=== PATIENT | male | born 1945 | race Caucasian/White ===

== ENCOUNTER 2024-09-27 16:41 | Inpatient (IN) | payer MEDICARE, OTHER, SELFPAY ==
[2024-09-27 15:05] VITALS: BP 156/71
[2024-09-27 15:14] VITALS: BMI 21.5
[2024-09-27 15:23] LABS: % Basophils 1.4 % (0-2); % Eosinophils 4.3 % (0-6); % Immature Granulocytes 0.8 % (0-0.5); % Lymphocytes 16.2 % (20.5-51.1); % Monocytes 9.3 % (1.7-9.3); Absolute Basophils 0.1 10^3/uL (0-0.2); Absolute Eosinophils 0.2 10^3/uL (0-0.7); Absolute Lymphocytes 0.8 10^3/uL (1.2-3.4); Absolute Monocytes 0.5 10^3/uL (0.1-0.6); Absolute Neutrophils 3.4 10^3/uL (1.4-6.5); Hematocrit 35.8 % (39.0-52.0); Hemoglobin 12.4 g/dL (13.0-18.0); Mean Corp Hgb Conc. 34.6 g/dL (33.0-37.0); Mean Corpuscular Hgb 32.4 pg (27.0-31.0); Mean Corpuscular Volume 93.5 fL (80.0-94.0); Mean Platelet Volume 8.5 fL (7.4-10.4); Nucleated Red Blood Cells % 0 % (-); Platelet Count 237 10^3/uL (130-400); Red Blood Cell Count 3.83 10^6/uL (4.70-6.10); Red Cell Dist. Width 14.1 % (11.5-14.5); White Blood Cell Count 4.9 10^3/uL (4.8-10.8)
[2024-09-27 15:31] LABS: INR 1.06; PT 14.3 Sec (11.4-14.6)
[2024-09-27 15:32] LABS: ALT (SGPT) < 10 U/L (0-50); APTT 28.6 Sec (23.4-35.0); AST (SGOT) 19 U/L (17-59); Albumin 3.9 g/dl (3.5-5.0); Alkaline Phosphatase 71 U/L (38-126); Blood Urea Nitrogen 24 mg/dl (9-20); Calcium 8.9 mg/dl (8.4-10.2); Carbon Dioxide 27 mmol/L (22-30); Chloride 109 mmol/L (98-107); Estimated Creatinine Clearance 77 ml/min; Glucose 98 mg/dl (70-99); Potassium 3.9 mmol/L (3.5-5.1); Sodium 140 mmol/L (135-145); Total Bilirubin 0.8 mg/dl (0.2-1.3); Total Protein 6.7 g/dl (6.3-8.2); eGFR > 60.00
[2024-09-27] MEDS: DILAUDID 0.5 MG IV ×3 (15:33→23:39)
[2024-09-27 16:11] VITALS: BP 152/74
--- NOTE | 2024-09-27 16:18 | ED.GENMED ---
History of Present Illness
General
Chief Complaint: Musculo-Skeletal Complaint
Time Seen by Provider: 09/27/24 15:09
History of Present Illness
History of Present Illness:
78-year-old male presents to the emergency department for evaluation of a left hip injury. He tripped and fell outside the grocery store and landed on the left hip. Prior history of Parkinson's. Denies head strike. He is not on blood thinners.
Review of Systems
Review of Systems
Allergies reviewed?: Yes
All Other Systems: ROS reviewed and negative except as documented in HPI and ROS
Phy Exam
Physical Exam
Physical Exam:
GEN: Well appearing, NAD, WDWN
Eyes: PERRLA, EOMs intact, no scleral icterus
HENT: NCAT, oral mucosa moist
Lungs: CTAB, no wheezes, rales, rhonchi, normal chest wall excursion
Cardiac: RRR
Abdomen: S, NT, ND, NABS, no masses or hepatosplenomegaly
Neuro: AO x 3, no focal deficits to BUE/BLE, normal sensation throughout
MSK: Shortening and external rotation of the left lower extremity with tenderness to the left hip
Skin: No rashes, petechiae. Normal color, no pallor or jaundice.
Psych: Calm, cooperative, proper hygiene
Course
Orders/Labs/Results
Orders:
Orders
09/27/24 Dinner
Regular
09/27/24 15:13
Type+Screen Urgent
Complete Blood Count/With Diff Urgent
Comprehensive Metabolic Panel Urgent
PTT Urgent
Prothrombin Time Urgent
09/27/24 15:18
CR Hip - LT w/wo Pel 2-3 Vw* Urgent
Comment:
Reason For Exam: fall, L hip injury
Include a pelvis x-ray?: Yes
09/27/24 15:31
HYDROmorphone [Dilaudid] 0.5 mg .ROUTE .STK-MED ONE
HYDROmorphone [Dilaudid] 0.5 mg IV NOW STA
09/27/24 16:24
ABO2 Urgent
BBK Wristband Number:
Associate notified that ABO2 has been ordered: [id number]
Date: 09/27/24
Time: 15:25
Horse Rider ID: [id number]
09/27/24 16:27
Carbidopa/Levodopa [Sinemet 25-100] 2 tablet PO NOW STA
09/27/24 16:28
Entacapone [Comtan] 200 mg PO NOW STA
09/27/24 16:36
Admit/Transfer Patient As Directed
Co-Sign Provider:
Level of Care: Inpatient admission
Assign to:: Medical/Surgical
Physician / Group: raeann
Diagnosis: hip fracture
Reason for Hospitalization: hip fracture
Expected length of stay greater than two midnights?: Yes
ELOS- Estimated Length of Stay in days: 2
I certify the patient meets the requirements for IP care: Yes
Code Status As Directed
Resuscitation Status: Full Code
PRN Pain Medication Management As Directed
May give lesser potent ordered pain med per pt: Yes
preference::
Protocol:: Medication orders for pain may be administered in a
manner that supports deferring to patient preference
when the pt is:
- Requesting an ordered lesser potent pain medication.
Least to most potent pain medications are defined
as: acetaminophen < NSAID < tramadol < opioids
(morphine, oxycodone, hydromorphone).
- Requesting a lesser dose of the same medication IF
ORDERED.
- Requesting a less intrusive route of administration
if both routes are prescribed by the provider (PO <
IV).
09/27/24 16:59
Acetaminophen [Tylenol] 650 mg PO Q4HPRN PRN
HYDROmorphone [Dilaudid] 0.5 mg IV Q4HPRN PRN
09/27/24 18:39
Ezetimibe [Zetia] 10 mg PO QPM
Ipratropium/Albuterol Sulfate [Duoneb] 3 ml INH R Q6HPRN PRN
Tamsulosin [Flomax] 0.4 mg PO QPM
09/27/24 18:39
ORTHOPEDIC CONSULT Routine
Consulting Provider: David Reynoso
Was physician already notified: Yes
Activity As Directed
Activity Level: As Tolerated
Pneumatic Compression Sleeves As Directed
Type: Knee high
Vital Signs As Directed
Frequency: Per unit guidelines
DX Deep Vein Thrombosis Video Routine
09/28/24 Breakfast
NPO
Allow oral meds: Yes
Allow clear liquids: Sips of Clears
Complete Blood Count/With Diff IN AM
Comprehensive Metabolic Panel IN AM
Levothyroxine [Synthroid] 150 mcg PO [id number]@0600
09/28/24 08:00
Aspirin Low Dose EC [Aspir Low (Enteric Coated)] 81 mg PO DAILY
Finasteride [Proscar] 5 mg PO DAILY
Furosemide [Lasix] 20 mg PO DAILY
Polyethylene Glycol Powder [Miralax] 17 grams PO Q48H
Abnormal Lab Results
09/27/24
15:13
RBC 3.83 L 10^6/uL
(4.70-6.10)
Hgb 12.4 L g/dL
(13.0-18.0)
Hct 35.8 L %
(39.0-52.0)
MCH 32.4 H pg
(27.0-31.0)
Absolute Lymphs (auto) 0.8 L 10^3/uL
(1.2-3.4)
Immature Gran % 0.8 H %
(0-0.5)
Lymphocytes % 16.2 L %
(20.5-51.1)
Chloride 109 H mmol/L
(98-107)
BUN 24 H mg/dl
(9-20)
09/27/24 15:13
09/27/24 15:13
Vital Signs
Initial and Last Documented VS:
Initial Vital Signs
Temp Pulse Resp BP Pulse Ox
97.6 F 57 24 156/71 98
09/27/24 15:05 09/27/24 15:05 09/27/24 15:05 09/27/24 15:05 09/27/24 15:05
Last Documented Vital Signs
Temp Pulse Resp BP Pulse Ox
97.3 F 68 18 151/76 90
09/27/24 18:45 09/27/24 20:13 09/27/24 20:13 09/27/24 18:45 09/27/24 20:13
MDM/Problems Addressed
MDM/Problems Addressed:
Imaging reveals a left neck fracture, orthopedics made aware, will admit to the medical service for further management pernding ortho consultation
*Critical Care Note
Total Time (30-74mins, 75-104mins- exclusive of procedures): Not Applicable
ED Attending Note
-
Portions of this chart may have been created with voice recognition software.� Occasional wrong word or��sound alike� substitutions may have occurred due to the inherent limitations of voice recognition software.
Discharge Plan
Departure
Patient Disposition: Admit
Date of Disposition: 09/27/24
Time of Disposition: 16:20
Admit to: Med/Surg
Presentation/result/management discussed w/ accepting MD/DO: Hospitalist
Discharge Problem:
Closed fracture of neck of left femur
Interventions
Interventions:
*Risk Screen - Suicide Last Done: 09/27/24 15:23
*General Assessment Last Done: 09/27/24 15:21
*Neglect/Abuse Screening Last Done: 09/27/24 15:23
*ED- Fall Risk Assessment Last Done: 09/27/24 15:21
*ED COVID-19 Vaccine History Last Done: 09/27/24 15:21
*Nursing Disposition Last Done: 09/27/24 18:30
ED-Musculoskeletal Assessment Last Done: 09/27/24 15:24
Discharge Date and Time
Discharge Date/Time: 09/27/24 18:30
--- NOTE | 2024-09-27 16:38 | HPS.HSE ---
Family Physician
-
Family Physician: Virgil Jiménez
Chief Complaint
-
fall and hip fracture
History of Present Illness
78-year-old male past medical history of CAD status post stents, possible CHF, Parkinson's disease, BPH, hypothyroidism, constipation, hypercholesterolemia, COPD, presenting for left hip injury. He tripped and fell outside the grocery store and
landed on his left hip. Denies head injury. Not on blood thinners.
He normally ambulates with a walker. He has falls occasionally.
No recent chest pain or shortness of breath. Denies any difficulties with anesthesia previously.
He is a former smoker. Denies alcohol use.
Medical History
Past Medical History
Past Medical History: Reports Other ( CAD status post stents, possible CHF, Parkinson's disease, BPH, hypothyroidism, constipation, hypercholesterolemia, COPD)
Past Surgical History: Reports None
Social History
Tobacco: Former Smoker
Alcohol: None
Drug: None
Family History
Family History: Not pertinent
Allergies / Home Medications
Allergies reflects when Allergies were last updated in [employer].
Home Medications with original date entered in [employer]
Allergy/Medication List:
Allergies
Allergy/AdvReac Type Severity Reaction Status Date / Time
No Known Allergies Allergy Verified 09/27/24 15:15
Home Medications
aspirin 81 mg tablet,delayed release 81 mg PO DAILY 09/27/24
carbidopa 50 mg-levodopa 200 mg-entacapone 200 mg tablet 1 tab PO Q4H 09/27/24
ezetimibe 10 mg tablet (Zetia) 10 mg PO QPM 09/27/24
finasteride 5 mg tablet 5 mg PO DAILY 09/27/24
fluticasone fur. 100 mcg-umeclid 62.5 mcg-vilant 25 mcg inhalat.powder (Trelegy Ellipta) 1 inh inhalation R DAILY 09/27/24
furosemide 20 mg tablet (Lasix) 20 mg PO DAILY 09/27/24
ipratropium 0.5 mg-albuterol 3 mg (2.5 mg base)/3 mL nebulization soln 3 ml inhalation R Q6HPRN PRN sob 09/27/24
levothyroxine 150 mcg tablet (Synthroid) 150 mcg PO [id number] 09/27/24
polyethylene glycol 3350 17 gram oral powder packet (Miralax) 17 g PO Q48H 09/27/24
tamsulosin 0.4 mg capsule (Flomax) 0.4 mg PO QPM 09/27/24
Review of Systems
-
History Source: Patient
A 12 point ROS was completed and negative except as noted: Yes
Constitutional: Reports No Symptoms
EENT: Reports No Symptoms
Respiratory: Reports No Symptoms
Cardiac: Reports No Symptoms
Abdomen/GI: Reports No Symptoms
: Reports No Symptoms
Musculoskeletal: Reports See HPI
Skin: Reports No Symptoms
Neurological: Reports No Symptoms
Endocrine: Reports No Symptoms
Hematologic/Lymphatic: Reports No Symptoms
Psych: Reports No Symptoms
Physical Exam
Vital Signs
Vital Signs
Temp Pulse Resp BP Pulse Ox
97.6 F 70 26 152/74 98
09/27/24 15:05 09/27/24 16:11 09/27/24 16:11 09/27/24 16:11 09/27/24 15:30
Physical Exam
General: Well Developed, Well Nourished and No Apparent Distress
HEENT: NormoCephalic, Moist mucous membranes and Atraumatic
Respiratory: Clear
Cardiac: S1/S2 and Regular Rhythm; No Murmur or Rub
GI: Soft, Non Tender, Non Distended and Normal Bowel Sounds; No Organomegaly
Rectal: Deferred by Provider
Musculoskeletal: No Clubbing, No Cyanosis and No Edema
Skin: No Rash
Neuro: Nonfocal/grossly intact
Laboratory Results
-
04/09/25 15:13
09/27/24 15:13
Laboratory Results
PT 14.3 Sec (11.4-14.6) 09/27/24 15:13
INR 1.06 09/27/24 15:13
APTT 28.6 Sec (23.4-35.0) 09/27/24 15:13
Total Bilirubin 0.8 mg/dl (0.2-1.3) 09/27/24 15:13
AST 19 U/L (17-59) 09/27/24 15:13
ALT < 10 U/L (0-50) 09/27/24 15:13
Alkaline Phosphatase 71 U/L (38-126) 09/27/24 15:13
Data Reviewed
-
Lab Data: Labs Reviewed by me
Old Records: Reviewed
Impression/Plan
-
IMPRESSION:
PLAN:
# Ambulatory dysfunction with fall and likely fracture of the neck of the proximal left femur
- Tylenol, Dilaudid as needed for pain
- N.p.o. past midnight
- Orthopedics consulted
- N.p.o. postmidnight for potential surgery tomorrow
- Patient appears well compensated and can proceed to surgery
Parkinson's disease
- Continue carbidopa/levodopa/entacapone
CAD status post stents
- Continue aspirin
Possible chronic HFpEF
- Continue Lasix
BPH
- Continue finasteride, tamsulosin
Hypothyroidism
Constipation
- Continue bowel regimen
Hypercholesterolemia
- Continue Zetia
COPD
- Continue inhalers
Chronic stomach problem
- Patient did not tolerate PPI
Former smoker
Full code
DVT prophylaxis�SCDs
N.p.o. postmidnight
[2024-09-27] MEDS: COMTAN 200 MG PO ×3 (16:56→23:39)
[2024-09-27] MEDS: SINEMET 25-100 2 TABLET PO ×3 (16:56→23:37)
[2024-09-27 17:00] VITALS: BP 153/79
[2024-09-27 18:00] VITALS: BP 111/67
[2024-09-27 18:45] VITALS: BP 151/76
[2024-09-27] MEDS: FLOMAX 0.4 MG PO (19:36)
[2024-09-27] MEDS: ZETIA 10 MG PO (19:36)
[2024-09-27] MEDS: DUONEB 3 ML INH (20:07)
[2024-09-27] MEDS: SYMBICORT 80/4.5 MCG INHALER 2 PUFF INH (20:24)
[2024-09-27 23:00] VITALS: BP 103/59
[2024-09-28] VITALS (7 sets, daily range): BP systolic 123–148; BP diastolic 61–76; BMI 21.5
[2024-09-28] MEDS: SINEMET 25-100 2 TABLET PO ×4 (04:59→20:35)
[2024-09-28] MEDS: COMTAN 200 MG PO ×4 (04:59→21:06)
[2024-09-28] MEDS: SYNTHROID 150 MCG PO (05:00)
[2024-09-28] MEDS: DILAUDID 0.5 MG IV ×2 (05:27→12:27)
--- NOTE | 2024-09-28 05:48 | PTCARENOTE ---
Pt slept intermittently t/o the night. Pt with left hip pain, PRN medication administered as ordered. Pain especially with movement. #25CC in place draining yoel urine. Pt repositioned as tolerated. Knee high seq in place. Pt HOLLAND with exertional ex
wheezes with movement and lowering of head. Pt cooperative with care. No other changes in assessment noted. Will continue to monitor.
[2024-09-28 06:40] LABS: % Basophils 0.6 % (0-2); % Eosinophils 2.9 % (0-6); % Immature Granulocytes 0.5 % (0-0.5); % Lymphocytes 8.8 % (20.5-51.1); % Monocytes 10.7 % (1.7-9.3); % Neutrophils 76.5 % (42.2-75.2); Absolute Eosinophils 0.2 10^3/uL (0-0.7); Absolute Lymphocytes 0.6 10^3/uL (1.2-3.4); Absolute Monocytes 0.7 10^3/uL (0.1-0.6); Absolute Neutrophils 4.8 10^3/uL (1.4-6.5); Hematocrit 33.9 % (39.0-52.0); Hemoglobin 11.6 g/dL (13.0-18.0); Mean Corp Hgb Conc. 34.2 g/dL (33.0-37.0); Mean Corpuscular Hgb 32.2 pg (27.0-31.0); Mean Corpuscular Volume 94.2 fL (80.0-94.0); Mean Platelet Volume 8.5 fL (7.4-10.4); Nucleated Red Blood Cells % 0 % (-); Platelet Count 211 10^3/uL (130-400); White Blood Cell Count 6.3 10^3/uL (4.8-10.8)
--- NOTE | 2024-09-28 07:10 | W.PN.UPDATE ---
Update Note
Progress Note Update
Full orthopedic consult dictated: Son Lamont and [id number] present at bedside
Dx: Left hip displaced femoral neck fracture
Plan: Left hip hemiarthroplasty later today Surgical consent signed. NPO and ABX railroad commissioner to OR.
[2024-09-28] MEDS: SYMBICORT 80/4.5 MCG INHALER 2 PUFF INH ×2 (07:23→19:41)
[2024-09-28] MEDS: SPIRIVA RESPIMAT 2.5 MCG 2 PUFF INH (07:23)
[2024-09-28 07:26] LABS: ALT (SGPT) < 10 U/L (0-50); AST (SGOT) 17 U/L (17-59); Albumin 3.6 g/dl (3.5-5.0); Alkaline Phosphatase 84 U/L (38-126); Blood Urea Nitrogen 21 mg/dl (9-20); Calcium 8.8 mg/dl (8.4-10.2); Carbon Dioxide 28 mmol/L (22-30); Chloride 110 mmol/L (98-107); Estimated Creatinine Clearance 90 ml/min; Glucose 92 mg/dl (70-99); Potassium 4.1 mmol/L (3.5-5.1); Sodium 140 mmol/L (135-145); Total Bilirubin 1.1 mg/dl (0.2-1.3); Total Protein 6.2 g/dl (6.3-8.2); eGFR > 60.00
[2024-09-28] MEDS: ASPIR LOW (ENTERIC COATED) 81 MG PO (07:50)
[2024-09-28] MEDS: LASIX 20 MG PO (07:51)
[2024-09-28] MEDS: PROSCAR 5 MG PO (07:52)
[2024-09-28] MEDS: MIRALAX PO (07:58)
--- NOTE | 2024-09-28 08:06 | W.PN.HOSP.TC ---
Today's Communication/Plan
-
Surgery for hip fracture today
Maintain NPO
DVT prophylaxis per ortho following surgery
Assessment / Plan
Assessment / Plan
Physical Exam
General: Well Developed, Well Nourished and No Apparent Distress
HEENT: Normocephalic, Moist mucous membranes and Atraumatic
Respiratory: Clear to Auscultation Bilaterally
Cardiac: S1/S2 and Regular Rhythm
GI: Soft, Non Tender, Non Distended and Normal Bowel Sounds
Musculoskeletal: No Cyanosis and No Edema
Skin: Warm. Dry.
Neuro: Nonfocal/grossly intact
Assessment/Plan
78-year-old male with past medical history of CAD status post stents, possible CHF, Parkinson's disease, BPH, hypothyroidism, constipation, hypercholesterolemia and COPD, presented for left hip injury. He tripped and fell outside the grocery store
and landed on his left hip and left upper extremity. Denied head injury or loss of consciousness or any prodromal symptoms prior to fall. Not on blood thinners. He normally ambulates with a walker. He has falls occasionally. No recent chest pain or
shortness of breath. Denies any difficulties with anesthesia previously.
# Ambulatory dysfunction with fall and left hip displaced femoral neck fracture
- Tylenol, Dilaudid as needed for pain
- N.p.o. for surgery today
- Orthopedics consulted
- Patient appears well compensated and can proceed to surgery, risk is elevated with history of CAD, age, comorbid conditions, but surgery is necessary
Parkinson's disease
- Continue carbidopa/levodopa/entacapone
CAD status post stents
- Continue aspirin
Possible chronic HFpEF
- Continue Lasix
BPH
- Continue finasteride, tamsulosin
Hypothyroidism
Constipation
- Continue bowel regimen
Hypercholesterolemia
- Continue Zetia
COPD
- Continue inhalers
Chronic stomach problem
- Patient did not tolerate PPI
Former smoker
Full code
DVT prophylaxis�SCDs
N.p.o. for surgery today
I spoke to patient's son in person in patient's room today, and answered all his questions and concerns to satisfaction.
Anticipated Discharge: 24 - 48 hours
Subjective/Interval History
-
Date of Service: September 28, 2024
Patient was seen and examined. He was bit more confused this morning, but this has improved per patient's son. Patient denied any pain as long as he doesn't move significantly.
Objective Data
-
Labs:
Laboratory Results
09/28/24
06:23
WBC 6.3
Hgb 11.6 L
Hct 33.9 L
Plt Count 211
Sodium 140
Potassium 4.1
Chloride 110 H
Carbon Dioxide 28
BUN 21 H
Creatinine 0.6 L
Glucose 92
Calcium 8.8
Total Bilirubin 1.1
AST 17
ALT < 10
Alkaline Phosphatase 84
Vital Signs:
Vital Signs
Temp Pulse Resp BP Pulse Ox
98.3 F 78 18 127/61 97
09/28/24 07:26 09/28/24 07:51 09/28/24 07:29 09/28/24 07:51 09/28/24 07:29
I&O
09/27/24 09/28/24 09/29/24
06:59 06:59 06:59
Output Total 300 / 300
Balance -300 / -300
--- NOTE | 2024-09-28 15:30 | PTCARENOTE ---
Pt transported to surgery, son took belongings, pt to transfer to [address] [place] [address] from PACU
--- NOTE | 2024-09-28 17:50 | OR.RPT ---
Operative Report
Operative Report
Orthopaedic Surgery Operative Note
DATE OF OPERATION: 09/28/2024
PREOPERATIVE DIAGNOSES: Displaced femoral neck fracture, left
POSTOPERATIVE DIAGNOSES: Same
OPERATION PERFORMED: Left hip hemiarthroplasty
SURGEON: David Reynoso MD
VEGETABLE FARM MANAGER: Estiven WAGNER who helped with patient and limb positioning and retraction
ANESTHESIA: Spinal
COMPLICATIONS: None.
ESTIMATED BLOOD LOSS: 50 mL.
DRAINS: None
SPECIMEN: None
FINDINGS: Displaced fracture of the femoral neck
IMPLANTS: [employer] stem size 14, standard offset, Size 51 Endo unipolar head, DJO bone cement, medium cement restrictor, distal centralizer
INDICATIONS: The patient presented to the emergency department after a fall sustained one day ago with new onset hip pain. Xrays showed a displaced femoral neck fracture. I discussed treatment options with the patient and discussed that based on the
degree of displacement that fixation of the fracture may have a high risk of complication and failure. I discussed surgical treatment with arthroplasty. Based on the patient's age and activity level, shared decision was to proceed with
hemiarthroplasty. I reviewed the risks, benefits, and alternatives of various treatment options. The patient understood the risks which included, but were not limited to, bleeding, infection, failure to relieve pain, more pain than preop, damage to
blood vessels and nerves, need for reoperation, mechanical failure of the implants, wound healing problems, stiffness, instability, blood clot, pulmonary embolism, myocardial infarction, pneumonia, arrhythmia, CVA, and . The patient accepted
these risks and wished to proceed. All questions were answered, and informed consent was obtained.
PROCEDURE IN DETAIL:
The patient was identified in the preoperative holding area. The left hip was identified as the operative site. The patient was taken in the operating room and transferred to the operative table. Spinal anesthesia was performed. IV antibiotics and
tranexamic acid were administered. The patient was placed in the lateral position with Stulberg hip positioners. Axillary roll was placed. The down leg was well padded. All bony prominences were well padded. The operative limb was prepped and draped
in the usual sterile fashion.
Time out was performed. A posterolateral approach to the hip was used. The skin incision was centered over the greater trochanter. This was taken down sharply through subcutaneous tissues. Meticulous hemostasis was achieved throughout the case with
electrocautery. We split the fascia olga lidia in line with skin incision. I split the gluteus jonathan bluntly. We cauterized all crossing vessels as we split it. I palpated the sciatic nerve and made sure it was well posterior in the operative field. It
was protected throughout the case.
The posterior anatomy was distorted due to fracture hematoma and swelling. I performed a partial bursectomy to identify the short external rotators. The gluteus medius and minimus were identified and retracted anteriorly. I incised the piriformis
tendon and conjoint tendon at their insertions. These were tagged for later repair. I then performed a trapezoidal capsulotomy. The edges were tagged for later repair.
The femoral neck fracture was identified. The leg was flexed and internally rotated, and a fresh femoral neck cut was performed. The femur was translated anteriorly. Care was taken to preserve the labrum. The femoral head was carefully removed with
a rosales and a tenaculum. The head measured to be 51mm. The acetabulum was inspected and noted not to have marked degenerative changes. A trial head was placed in the acetabulum and size 51 had appropriate fit and suction fit.
Attention was turned to the femur. Box osteotome and Charnley awe were used to open the canal. The femur was sequentially broached to size 14 which had appropriate fit and fill. A trial head was placed with standard offset neck and the hip was
reduced. Leg length and offset were checked and found to be appropriate. The hip was taken through complete range of motion and found to be stable in extension, the position of sleep, and at 90 degrees of flexion and internal rotation.
Trials were removed and the femoral canal was prepared with irrigation and ribbon gauze packing sequentially. A cement restrictor was placed into the femoral canal 1cm distal to the tip of the femoral stem. This was measured off the trial femoral
stem. Once the femoral canal was prepared, the cement was mixed. Once doughy in consistency, the cement was pressurized into the canal with a cement gun. The stem was then carefully inserted into the canal with care to minimize rotation or
micromotion. Excess cement was removed. Once the cement was polymerized, the joint was irrigated copiously. The acetabulum was inspected to be free of cement particles and other debris. The final head was impacted onto clean and dry trunion and the
hip was reduced. Leg length and stability were checked again and found to be acceptable. The sciatic nerve was inspected and noted to be free of tension and uninjured.
A dilute betadine soak was performed for approximately 3 minutes, and then the hip was copiously irrigated. I repaired the capsule, piriformis, and conjoint tendon with #2 Ethibond to drill holes in the greater trochanter. Local anesthetic was
injected. The fascia olga lidia was closed with #1 PDS in running fashion. The subcutaneous tissues were closed with 2-0 PDS in running fashion. The skin was reapproximated with 3-0 Monocryl subcuticular suture. I placed a Prineo dressing followed by a
Mepilex Ag dressing. The patient awoke from anesthesia without difficulty. Sponge and instrument counts were correct x2 at the end of the case.
I was present and participated in the entire procedure. The patient was sent to the recovery room in stable condition.
Marcel Reynoso MD
--- NOTE | 2024-09-28 18:40 | PTCARENOTE ---
Pt received from the PACU via bed. Transport was w/o incident. Pt is Awake and alert w/ some confusion. Pt and Pt's son's instructed on plan of care. Pt verbalized understanding of instructions, but will need on going instruction and orientation.
Pt's VSS, Pt denies pain or nausea at this time. Pt's left hip with Mepilex dressing C/D/I, no drainage noted at present. Call callahan is within reach. Will apply bed alarm for safety.
[2024-09-28] MEDS: SINEMET 25-100 PO (18:45)
[2024-09-28] MEDS: COMTAN PO (18:45)
[2024-09-28] MEDS: DUONEB 3 ML INH (19:52)
[2024-09-28] MEDS: ASPIRIN 325 MG PO (20:35)
[2024-09-28] MEDS: FLOMAX 0.4 MG PO (20:35)
[2024-09-28] MEDS: COLACE 100 MG PO (20:35)
[2024-09-28] MEDS: ZETIA 10 MG PO (20:40)
[2024-09-29] VITALS (8 sets, daily range): BP systolic 93–124; BP diastolic 46–71; PULSE 50; O2SAT 95
[2024-09-29] MEDS: ANCEF 5 IV ×2 (00:26→08:13)
[2024-09-29] MEDS: COMTAN PO ×2 (00:27→00:37)
[2024-09-29] MEDS: SINEMET 25-100 PO ×2 (00:27→00:37)
--- NOTE | 2024-09-29 00:37 | PTCARENOTE ---
Pt refused to take Parkinsons meds, spat them out of his mouth into his hand. RN explained what the meds were but patient continually agitated and confused, stated, 'I didn't do it, I already apologized. Pt was reoriented to time, place, situation
numerous times. Pt continued to refuse medications. Care ongoing.
[2024-09-29] MEDS: SINEMET 25-100 2 TABLET PO ×5 (03:28→20:08)
[2024-09-29] MEDS: COMTAN 200 MG PO ×5 (03:28→20:09)
[2024-09-29] MEDS: SYNTHROID 150 MCG PO (05:02)
[2024-09-29 07:39] LABS: Hematocrit 33.3 % (39.0-52.0); Hemoglobin 11.4 g/dL (13.0-18.0); Mean Corp Hgb Conc. 34.2 g/dL (33.0-37.0); Mean Corpuscular Hgb 32.5 pg (27.0-31.0); Mean Corpuscular Volume 94.9 fL (80.0-94.0); Platelet Count 207 10^3/uL (130-400); Red Blood Cell Count 3.51 10^6/uL (4.70-6.10); Red Cell Dist. Width 14.1 % (11.5-14.5); White Blood Cell Count 8.6 10^3/uL (4.8-10.8)
--- NOTE | 2024-09-29 07:49 | W.PN.HOSP.TC ---
Today's Communication/Plan
-
Discharge today
Assessment / Plan
Assessment / Plan
Physical Exam
General: Well Developed, Well Nourished and No Apparent Distress
HEENT: Normocephalic, Moist mucous membranes and Atraumatic
Respiratory: Clear to Auscultation Bilaterally
Cardiac: S1/S2 and Regular Rate and Rhythm
GI: Soft, Non Tender, Non Distended and Normal Bowel Sounds
Musculoskeletal: No Cyanosis and No Edema
Skin: Warm. Dry.
Neuro: Nonfocal/grossly intact
Assessment/Plan
78-year-old male with past medical history of CAD status post stents, possible CHF, Parkinson's disease, BPH, hypothyroidism, constipation, hypercholesterolemia and COPD, presented for left hip injury. He tripped and fell outside the grocery store
and landed on his left hip and left upper extremity. Denied head injury or loss of consciousness or any prodromal symptoms prior to fall. Not on blood thinners. He normally ambulates with a walker. He has falls occasionally. No recent chest pain or
shortness of breath. Denies any difficulties with anesthesia previously.
# Ambulatory dysfunction with fall and left hip displaced femoral neck fracture status post left hip hemiarthroplasty on 09/29/24
- Tylenol, Dilaudid as needed for pain
- Orthopedics consulted
- Continue WBAT B/L LEs on walker/assistance
- PT/OT, THPs x 6 weeks
- ASA 325mg daily x 4 weeks (Day 1 was September 28, 2024)
- Pain control, ice to hip
- Dressing on x 2 weeks
- Outpatient Ortho follow-up 4 weeks (from 09/29/24), sooner if necessary
#Questionable Hematuria
-Urine does not look completely red
-Seen in [facility] Cath on 09/29/24
-Discussed with urology on 09/29/24 and since patient's Hgb is stable, okay to continue the Aspirin 325 mg daily for now
-Recheck CBC outpatient/check UA outpatient
#Post-Op Fever
-Temp 100.4 right at the end of surgery on 09/28/24, no fever since, and vitals are good
-Encourage incentive spirometry, pulmonary toilet, mobilization as tolerated
-Patient is outside the typical timeline and also has no signs or symptoms of UTI, Pneumonia, DVT or surgical site infection
Drug induced Encephalopathy
-Post-op from anesthesia and meds periop
-RESOLVED
Parkinson's disease
- Continue carbidopa/levodopa/entacapone
CAD status post stents
- Continue aspirin
Possible chronic HFpEF
- Continue Lasix
BPH
- Continue finasteride, tamsulosin
Hypothyroidism
Constipation
- Continue bowel regimen
Hypercholesterolemia
- Continue Zetia
COPD
- Continue inhalers
Chronic stomach problem
- Patient did not tolerate PPI
Former smoker
Moderate protein calorie malnutrition
Full code
DVT prophylaxis�SCDs. Aspirin 325 mg daily.
I spoke to patient's son in person in patient's room today, and answered all his questions and concerns to satisfaction.
More than 30 minutes spent in discharge including
Final examination of the patient
Summarizing hospital stay
Instructions for continuing care to all relevant caregivers
Preparation of discharge records, prescriptions, and referral forms
Total time spent (in minutes): 40
Anticipated Discharge: Today
Subjective/Interval History
-
Date of Service: September 29, 2024
Patient was seen and examined. He denied any new urinary symptoms, and denied any fever, chest pain or shortness of breath.
Objective Data
-
Labs:
Laboratory Results
09/29/24
05:59
WBC 8.6
Hgb 11.4 L
Hct 33.3 L
Plt Count 207
Sodium Pending
Potassium Pending
Chloride Pending
Carbon Dioxide Pending
BUN Pending
Creatinine Pending
Glucose Pending
Calcium Pending
Vital Signs:
Vital Signs
Temp Pulse Resp BP Pulse Ox
98.5 F 75 19 124/71 93
09/29/24 03:05 09/29/24 03:05 09/29/24 03:05 09/29/24 03:05 09/29/24 03:05
I&O
09/28/24 09/29/24 09/30/24
06:59 06:59 06:59
Output Total 300 / 300 750 / 750
Balance -300 / -300 -750 / -750
[2024-09-29 08:11] LABS: Blood Urea Nitrogen 25 mg/dl (9-20); Calcium 8.5 mg/dl (8.4-10.2); Carbon Dioxide 27 mmol/L (22-30); Chloride 108 mmol/L (98-107); Estimated Creatinine Clearance 77 ml/min; Glucose 102 mg/dl (70-99); Potassium 4.1 mmol/L (3.5-5.1); Sodium 139 mmol/L (135-145); eGFR > 60.00
[2024-09-29] MEDS: ASPIRIN 325 MG PO (08:13)
[2024-09-29] MEDS: COLACE 100 MG PO ×2 (08:16→20:09)
[2024-09-29] MEDS: PROSCAR 5 MG PO (08:17)
[2024-09-29] MEDS: LASIX 20 MG PO (08:17)
[2024-09-29] MEDS: TYLENOL 650 MG PO ×2 (08:18→18:44)
[2024-09-29] MEDS: SPIRIVA RESPIMAT 2.5 MCG 2 PUFF INH (08:28)
[2024-09-29] MEDS: SYMBICORT 80/4.5 MCG INHALER 2 PUFF INH ×2 (08:28→17:43)
--- NOTE | 2024-09-29 08:30 | W.PN.ORTHO ---
Today's Communication / Plan
-
Appreciate the primary team, continue Tx
Dispo likely SNF, appreciate CM
Continue WBAT B/L LEs on walker/assistance
PT/OT, THPs x 6 weeks
ASA 325mg daily x 4 weeks
Pain control, ice to hip
Dressing on x 2 weeks
Outpatient Ortho follow-up 4 weeks, sooner if necessary
Assessment
.
Distal Motor Intact: Yes
Dressing:
Clean, dry and intact. Mepiliex in place left hip
Assessment:
POD#1 Left Hip Kash
Overall doing/feeling well
Calf soft, nontender
Plan
.
Surgery / Date: Left Hip Kash October 13 ([place])
DVT Prophylaxis: Aspirin
Activity:
Out of bed. WBAT B/L LEs on walker
PT/OT, THPs x 6 weeks
Discharge Plan: SNF (or per CM)
Subjective
.
.:
Patient resting comfortably. No significant pain left hip this AM
Vital Signs and Labs
.
Vital Signs and Labs:
Lab Results
09/29/24 05:59
09/29/24 05:59
Temp Pulse Resp BP Pulse Ox
98.0 F 63 19 117/62 98
09/29/24 07:10 09/29/24 07:10 09/29/24 07:10 09/29/24 07:10 09/29/24 07:10
PT 14.3 Sec (11.4-14.6) 09/27/24 15:13
INR 1.06 09/27/24 15:13
--- NOTE | 2024-09-29 09:10 | PN.CDI ---
CDI
- -
CDI:
Physician Documentation Request
Admit Date: 09/27/24 16:41
Dear Doctor Dragan,
Please review the following and provide your response in the progress notes.
Clinical Indicators:
Pt admitted with left hip displaced femoral neck fractures/p hemiarthroplasty 09/28
Nutrition consult 09/28,' CBW: 133 lbs 6.075 oz reflective of a 77 lb reported weight loss in 1 1/[address] able to observed orbital area sunken in, protrusion of clavicle , apparent ribs, muscle loss over triceps and temporal
wasting. With observed muscle and fat wasting as well as < 75% estimated needs > 1 month pt meets AND/ASPEN criteria for moderate protein calorie malnutrition of chronic illness ...Assessment subcutaneous loss over tricep severity moderate , rib
cage mild ,orbital severity moderate...assessment muscle loss over clavicle severity moderate , temporal severity moderate ...'
Based on the above information and your assessment, which of the following most accurately represents the patient's nutritional status?
Moderate protein calorie malnutrition
Other ( please specify)
[place] Criteria (ACP Hospitalist 2017)
2 or more criteria must be present for either
non severe or severe malnutrition
Note that the criteria differs related to the
presence of an acute or chronic illness
Acute Illness Chronic Illness
Energy Intake Non Severe: <75% for >7 days Non Severe: <75% for >1 month
Severe: <50% for >5 days Severe: <75% for >1 month
Weight Loss Non Severe: 1-2% over 1 week Non Severe: 5% over 1 month
5% over 1 month 7.5% over 3 months
7.5% over 3 months 10% over 6 months
1 year N/A 20% over 1 year
Severe: >2% over 1 week Severe: >5% over 1 month
>5% over 1 month >7.5% over 3 months
>7.5% over 3 months >10% over 6 months
1 year N/A >20% over 1 year
Body Fat Non Severe: Mild Decrease Non Severe: Mild Loss
Severe: Moderate Decrease Severe: Severe Loss
Muscle Mass Non Severe: Mild Decrease Non Severe: Mild Loss
Severe: Moderate Decrease Severe: Severe Loss
Fluid Accumulation Non Severe: Mild Accumulation Non Severe: Mild Accumulation
Severe: Moderate to severe Severe: Moderate to severe
accumulation accumulation
Reduced [employer] Strength Non Severe: N/A Non Severe: N/A
Severe: Measurably reduced Severe: Measurably reduced
Use of terms such as suspected, likely, concern for, or probable (associated with a specific diagnosis that is being evaluated, monitored, or treated as if it exists) are acceptable and can be coded in the inpatient setting, when documented at the
time of discharge.
Thank you,
Mary Alvarado RN
CDI Specialist
[place] [facility]
Please use your independent medical judgment in providing your response.
--- NOTE | 2024-09-29 09:16 | PN.CDI ---
CDI
- -
CDI:
Physician Documentation Request
Admit Date: 09/27/24 16:41
Dear Doctor Dragan ,
Please review the following and provide your response in the progress notes.
Clinical Indicators:
Pt admitted with left hip displaced femoral neck fractures/p hemiarthroplasty 09/28
Progress note 09/28, ' Patient was seen and examined. He was bit more confused this morning...'
Pt care note 09/28 @1840,' Pt is Awake and alert w/ some confusion....'
Pt care note 09/29 @ 0037,' Pt refused to take Parkinsons meds, spat them out of his mouth into his hand. RN explained what the meds were but patient continually agitated and confused, stated, 'I didn't do it...'
Based on the above, could you clarify in the Progress Notes and Discharge Summary which, if any of the following, is the most likely etiology of the confusion/altered mental status.
Drug induced Encephalopathy
Acute confusion only
Other ( please specify)
Use of terms such as suspected, likely, concern for, or probable (associated with a specific diagnosis that is being evaluated, monitored, or treated as if it exists) are acceptable and can be coded in the inpatient setting, when documented at the
time of discharge.
Thank you,
Mary Alvarado RN
CDI Specialist
[place] [facility]
Please use your independent medical judgment in providing your response.
--- NOTE | 2024-09-29 11:24 | CM ---
Addendum entered by Loree Jauregui RN 09/29/24 14:07:
PT recommends SNF. Discussed with patient's son via telephone. Permission to send referrals to area SNFs received. Referrals and [facility] sent via [facility].
Original Note:
Reviewed the chart notes and spoke with the patient and his son Chato ([phone]) at the bedside. The patient resides with his spouse in a one story home with one step to enter. The patient has a rolling walker, cane, shower chair, and shower
rails. The patient is currently on supplemental O2. The patient has had [facility] in the past and been to [facility] and [facility]. The patient confirmed his pharmacy of choice is the [address] CM
continues to be available to patient/family and is monitoring medical plan for needs at discharge.
Plan: Discharge plan is short term rehab once medically stable. No auth needed. PT/OT evaluations pending.
[2024-09-29] MEDS: DUONEB 3 ML INH (17:45)
[2024-09-29] MEDS: FLOMAX 0.4 MG PO (18:44)
[2024-09-29] MEDS: ZETIA 10 MG PO (18:44)
[2024-09-29] MEDS: DILAUDID 0.5 MG IV (20:04)
[2024-09-30] VITALS (8 sets, daily range): BP systolic 82–140; BP diastolic 44–73; O2SAT 96
[2024-09-30] MEDS: SINEMET 25-100 2 TABLET PO ×7 (00:09→23:12)
[2024-09-30] MEDS: COMTAN 200 MG PO ×7 (00:09→23:11)
[2024-09-30] MEDS: TYLENOL 650 MG PO ×2 (04:40→13:03)
[2024-09-30] MEDS: SYNTHROID 150 MCG PO (04:40)
[2024-09-30] MEDS: SYMBICORT 80/4.5 MCG INHALER 2 PUFF INH ×2 (06:49→17:36)
[2024-09-30] MEDS: SPIRIVA RESPIMAT 2.5 MCG 2 PUFF INH (06:49)
[2024-09-30] MEDS: DUONEB 3 ML INH ×3 (06:49→20:22)
[2024-09-30 07:16] LABS: Mean Corp Hgb Conc. 34.4 g/dL (33.0-37.0); Mean Corpuscular Hgb 32.4 pg (27.0-31.0); Mean Corpuscular Volume 94.1 fL (80.0-94.0); Mean Platelet Volume 9.1 fL (7.4-10.4); Platelet Count 208 10^3/uL (130-400); White Blood Cell Count 8.3 10^3/uL (4.8-10.8)
--- NOTE | 2024-09-30 07:42 | W.PN.ORTHO ---
Today's Communication / Plan
-
Appreciate the primary team, continue Tx
Dispo likely SNF, appreciate CM
Continue WBAT B/L LEs on walker/assistance
PT/OT, THPs x 6 weeks
ASA 325mg daily x 4 weeks
Pain control, ice to hip
Dressing on x 2 weeks
Outpatient Ortho follow-up 4 weeks, sooner if necessary
Orthopaedics to sign off for now, please re-engage with any pertinent questions
Assessment
.
Distal Motor Intact: Yes
Dressing:
Clean, dry and intact. Mepilex in place left hip
Assessment:
POD#2 Left Hip Kash
Overall doing/feeling well
calf soft, nontender
Plan
.
Surgery / Date: Left Hip Kash October 13 ([place])
DVT Prophylaxis: Aspirin
Activity:
Out of bed. WBAT B/L LEs on walker/assistance
PT/OT, THPs x 6 weeks
Discharge Plan: SNF (appreciate CM)
Subjective
.
.:
Patient resting comfortably. Feels much better this AM than yesterday. Also after AM albuterol treatment breathing less difficult
Vital Signs and Labs
.
Vital Signs and Labs:
Lab Results
09/30/24 06:08
Temp Pulse Resp BP Pulse Ox
98.2 F 84 16 102/58 96
09/30/24 03:05 09/30/24 06:52 09/30/24 06:52 09/30/24 03:05 09/30/24 06:52
PT 14.3 Sec (11.4-14.6) 09/27/24 15:13
INR 1.06 09/27/24 15:13
[2024-09-30 08:06] LABS: Blood Urea Nitrogen 24 mg/dl (9-20); Calcium 8.4 mg/dl (8.4-10.2); Carbon Dioxide 27 mmol/L (22-30); Chloride 105 mmol/L (98-107); Estimated Creatinine Clearance 90 ml/min; Glucose 121 mg/dl (70-99); Potassium 3.9 mmol/L (3.5-5.1); Sodium 136 mmol/L (135-145); eGFR > 60.00
[2024-09-30] MEDS: LASIX 20 MG PO (09:14)
[2024-09-30] MEDS: PROSCAR 5 MG PO (09:14)
[2024-09-30] MEDS: MIRALAX 17 GRAMS PO (09:15)
[2024-09-30] MEDS: ASPIRIN 325 MG PO (09:15)
[2024-09-30] MEDS: COLACE 100 MG PO (09:15)
--- NOTE | 2024-09-30 12:06 | W.PN.HOSP.TC ---
Today's Communication/Plan
-
SNF placement pending
See plan
Assessment / Plan
Assessment / Plan
Physical Exam
General: Well Developed, Well Nourished and No Apparent Distress
HEENT: Normocephalic, Moist mucous membranes and Atraumatic
Respiratory: Clear to Auscultation Bilaterally
Cardiac: S1/S2 and Regular Rate and Rhythm
GI: Soft, Non Tender, Non Distended and Normal Bowel Sounds
Musculoskeletal: No Cyanosis and No Edema
Skin: Warm. Dry.
Neuro: Nonfocal/grossly intact
Assessment/Plan
78-year-old male with past medical history of CAD status post stents, possible CHF, Parkinson's disease, BPH, hypothyroidism, constipation, hypercholesterolemia and COPD, presented for left hip injury. He tripped and fell outside the grocery store
and landed on his left hip and left upper extremity. Denied head injury or loss of consciousness or any prodromal symptoms prior to fall. Not on blood thinners. He normally ambulates with a walker. He has falls occasionally. No recent chest pain or
shortness of breath. Denies any difficulties with anesthesia previously.
# Ambulatory dysfunction with fall and left hip displaced femoral neck fracture status post left hip hemiarthroplasty on 09/29/24
- Tylenol, Dilaudid as needed for pain
- Orthopedics consulted
- Continue WBAT B/L LEs on walker/assistance
- PT/OT, THPs x 6 weeks
- ASA 325mg daily x 4 weeks (Day 1 was September 28, 2024)
- ice to hip
- Dressing on x 2 weeks
- Outpatient Ortho follow-up 4 weeks (from 09/29/24), sooner if necessary
- Pain control: Hold narcotic pain meds (pain is controlled well, patient has not needed any Tramadol and is not frequently needing Dilaudid -- patient's son is concerned narcotic medications will make patient confused/delirious)
#Questionable Hematuria - RESOLVED
-Urine does not look completely red
-Seen in [facility] Cath on 09/29/24
-Discussed with urology on 09/29/24 and since patient's Hgb is stable, okay to continue the Aspirin 325 mg daily for now
-Recheck CBC outpatient/check UA outpatient
#Post-Op Fever - RESOLVED
-Temp 100.4 right at the end of surgery on 09/28/24, no fever since
-Encourage incentive spirometry, pulmonary toilet, mobilization as tolerated
-Patient has had no signs or symptoms of UTI, Pneumonia, DVT or surgical site infection
#Drug induced Encephalopathy
-Post-op from anesthesia and meds periop
-RESOLVED
#Parkinson's disease
- Continue carbidopa/levodopa/entacapone
#CAD status post stents
- Continue aspirin
#Possible chronic HFpEF
- Hold Lasix given hypotension
#Asymptomatic Hypotension
-Received Furosemide on 09/30/24, and also had asymptomatic hypotension on 09/30/24
-Held Lasix
-Provided Normal Saline IV fluids bolus
#BPH
- Continue finasteride, tamsulosin
#Hypothyroidism
#Constipation
- Continue bowel regimen
- Abdominal X-ray from 09/30/24 with nonobstructive bowel gas pattern and moderate colonic stool burden.
- Laxatives Intensity: Miralax changed to daily (from home Q48H), and added Senokot-S BID
#Hypercholesterolemia
- Continue Zetia
#COPD
- Continue inhalers
#Chronic stomach problem
- Patient did not tolerate PPI
#Former smoker
#Moderate protein calorie malnutrition
Code Status: Full Code
DVT Prophylaxis: SCDs. Aspirin 325 mg daily.
I spoke again to patient's son in person in patient's room today, and answered all his questions and concerns to satisfaction.
Anticipated Discharge: 24 - 48 hours
Subjective/Interval History
-
Date of Service: September 30, 2024
Patient was seen and examined. He denied any pain or any other new symptoms or complaints. He was sitting in his chair comfortably.
Objective Data
-
Labs:
Laboratory Results
09/30/24
06:08
WBC 8.3
Hgb 11.0 L
Hct 32.0 L
Plt Count 208
Sodium 136
Potassium 3.9
Chloride 105
Carbon Dioxide 27
BUN 24 H
Creatinine 0.5 L
Glucose 121 H
Calcium 8.4
Vital Signs:
Vital Signs
Temp Pulse Resp BP Pulse Ox
98.2 F 68 16 82/50 95
09/30/24 11:20 09/30/24 11:20 09/30/24 11:20 09/30/24 11:20 09/30/24 11:20
I&O
09/29/24 09/30/24 10/01/24
06:59 06:59 06:59
Intake Total 2099 / 2099
Output Total 750 / 750 875 / 875
Balance -750 / -750 1225 / 1225
--- NOTE | 2024-09-30 12:30 | PTCARENOTE ---
Patient sitting in chair and c/o feeling tired. BP 88/44 manual. Patient assisted back to bed, physician made aware. Order obtained for IV fluid bolus 500ml. Son at bedside.
[2024-09-30] MEDS: NSS 500 IV (12:58)
[2024-09-30 13:45] LABS: Troponin I 0.021 ng/ml
[2024-09-30] MEDS: FLOMAX 0.4 MG PO (17:16)
[2024-09-30] MEDS: ZETIA 10 MG PO (17:17)
[2024-09-30 19:17] LABS: Troponin I 0.016 ng/ml
[2024-09-30] MEDS: SENOKOT-S 1 TABLET PO (20:43)
[2024-09-30] MEDS: ATIVAN 0.25 MG PO (23:13)
[2024-10-01] VITALS (8 sets, daily range): BP systolic 87–156; BP diastolic 44–116; PULSE 70; O2SAT 94; BMI 21.2
[2024-10-01 01:43] LABS: Troponin I 0.016 ng/ml
--- NOTE | 2024-10-01 02:29 | W.PN.UPDATE ---
Update Note
Progress Note Update
2300 pt with panic attack/anxiety. Small dose ativan ordered.
0230 pt with freq attempts to get oob. Nursing does state he has been confused at time during admit. Moved closer to nurses station. With Parkinson avoiding antipsychotics. and has allergy to seroquel (hallucinations).
[2024-10-01] MEDS: SINEMET 25-100 2 TABLET PO ×6 (03:33→23:44)
[2024-10-01] MEDS: COMTAN 200 MG PO ×6 (03:33→23:44)
--- NOTE | 2024-10-01 04:00 | PTCARENOTE ---
2300 Pt very anxious and complaining of shortness of breath. Pt 94% on RA. Pt placed on 2L O2 for comfort. 0.25mg Ativan given. 0230 Pt found getting out of bed. Pt getting agitated when re directed/ educated to call for assistance. Pt continuing to
get out of bed. Pt moved to a room in front of nurses station for closer monitoring.
[2024-10-01 06:47] LABS: Hematocrit 31.1 % (39.0-52.0); Hemoglobin 10.7 g/dL (13.0-18.0); Mean Corp Hgb Conc. 34.4 g/dL (33.0-37.0); Mean Corpuscular Hgb 32.2 pg (27.0-31.0); Mean Corpuscular Volume 93.7 fL (80.0-94.0); Platelet Count 211 10^3/uL (130-400); Red Blood Cell Count 3.32 10^6/uL (4.70-6.10); Red Cell Dist. Width 13.8 % (11.5-14.5)
[2024-10-01 07:11] LABS: Troponin I 0.016 ng/ml
[2024-10-01 07:19] LABS: Blood Urea Nitrogen 23 mg/dl (9-20); Calcium 8.7 mg/dl (8.4-10.2); Carbon Dioxide 29 mmol/L (22-30); Chloride 106 mmol/L (98-107); Estimated Creatinine Clearance 88 ml/min; Glucose 95 mg/dl (70-99); Potassium 3.7 mmol/L (3.5-5.1); Sodium 138 mmol/L (135-145); eGFR > 60.00
[2024-10-01] MEDS: SPIRIVA RESPIMAT 2.5 MCG 2 PUFF INH (08:02)
[2024-10-01] MEDS: ASPIRIN 325 MG PO (08:03)
[2024-10-01] MEDS: SENOKOT-S 1 TABLET PO ×2 (08:03→20:08)
[2024-10-01] MEDS: MIRALAX 17 GRAMS PO (08:03)
[2024-10-01] MEDS: SYMBICORT 80/4.5 MCG INHALER 2 PUFF INH ×2 (08:03→19:56)
[2024-10-01] MEDS: PROSCAR 5 MG PO (08:03)
--- NOTE | 2024-10-01 08:04 | W.PN.HOSP.TC ---
Today's Communication/Plan
-
SNF/Rehab placement pending
AVOID Ativan/benzos and narcotic pain medications UNLESS absolutely needed -- son also requested to avoid these meds as much as possible
Assessment / Plan
Assessment / Plan
Physical Exam
General: Well Developed, Well Nourished and No Apparent Distress
HEENT: Normocephalic, Moist mucous membranes and Atraumatic
Respiratory: Clear to Auscultation Bilaterally
Cardiac: S1/S2 and Regular Rate and Rhythm
GI: Soft, Non Tender, Non Distended and Normal Bowel Sounds
Musculoskeletal: No Cyanosis and No Edema. LLE surgical site bandage C/D/I.
Skin: Warm. Dry.
Neuro: Nonfocal/grossly intact
Assessment/Plan
78-year-old male with past medical history of CAD status post stents, possible CHF, Parkinson's disease, BPH, hypothyroidism, constipation, hypercholesterolemia and COPD, presented for left hip injury. He tripped and fell outside the grocery store
and landed on his left hip and left upper extremity. Denied head injury or loss of consciousness or any prodromal symptoms prior to fall. Not on blood thinners. He normally ambulates with a walker. He has falls occasionally. No recent chest pain or
shortness of breath. Denies any difficulties with anesthesia previously.
#Ambulatory dysfunction with fall and left hip displaced femoral neck fracture status post left hip hemiarthroplasty on 09/29/24
- Tylenol, Dilaudid as needed for pain
- Orthopedics consulted
- Continue WBAT B/L LEs on walker/assistance
- PT/OT, THPs x 6 weeks
- ASA 325mg daily x 4 weeks (Day 1 was September 28, 2024)
- ice to hip
- Dressing on x 2 weeks
- Outpatient Ortho follow-up 4 weeks (from 09/29/24), sooner if necessary
- Pain control: Hold narcotic pain meds (pain is controlled well, patient has not needed any Tramadol and is not frequently needing Dilaudid -- patient's son is concerned narcotic medications will make patient confused/delirious)
#Agitation/Sundowning
-Patient's son said no Ativan/benzodiazepines or narcotic pain medications UNLESS patient absolutely needs them
-Patient's son said he will there to redirect the patient as much as possible
#Questionable Hematuria - RESOLVED
-Urine did not look strongly red - seen in Condom Cath bag on 09/29/24
-Discussed with urology on 09/29/24 and since patient's Hgb is stable, okay to continue the Aspirin 325 mg daily for now
-Recheck CBC outpatient/check UA outpatient
#Post-Op Fever - RESOLVED
-Temp 100.4 right at the end of surgery on 09/28/24, no fever since
-Encourage incentive spirometry, pulmonary toilet, mobilization as tolerated
-Patient continues to have NO signs or symptoms of UTI, Pneumonia, DVT or surgical site infection
#Drug induced Encephalopathy
-Post-op from anesthesia and meds periop
-RESOLVED
#Parkinson's disease
- Continue carbidopa/levodopa/entacapone
#CAD status post stents
- Continue aspirin
#Possible chronic HFpEF
- Patient appears and examines as euvolemic
- Hold Lasix given intermittent hypotension
#Asymptomatic Hypotension
-Received Furosemide initially, and also had asymptomatic hypotension on 09/30/24
-Held Lasix
-Provided Normal Saline IV fluids bolus with subsequent improvement
#BPH
- Continue finasteride, tamsulosin
#Hypothyroidism
- Continue Levothyroxine
#Possible Constipation
- Continue bowel regimen
- Abdominal X-ray from 09/30/24 with nonobstructive bowel gas pattern and moderate colonic stool burden.
- Laxatives Intensity: Miralax changed to daily (from home Q48H), and added Senokot-S BID
- May need suppository
#Hypercholesterolemia
- Continue Zetia
#COPD
- Continue inhalers
#Chronic stomach problem
- Patient did not tolerate PPI
#Former smoker
#Moderate protein calorie malnutrition
Code Status: Full Code
DVT Prophylaxis: SCDs. Aspirin 325 mg daily.
I spoke again to patient's son in person in patient's room today, and answered all his questions and concerns to satisfaction.
Anticipated Discharge: Within 24 hours
Subjective/Interval History
-
Date of Service: October 01, 2024
Patient was seen and examined. Overnight, he had anxiety and panic, got a small dose of Ativan, which made him become more confused and agitated. Today he denied any chest pain, fever, cough, dysuria, urinary frequency, or any leg pain or swelling.
Objective Data
-
Labs:
Laboratory Results
10/01/24
06:28
WBC 8.0
Hgb 10.7 L
Hct 31.1 L
Plt Count 211
Sodium 138
Potassium 3.7
Chloride 106
Carbon Dioxide 29
BUN 23 H
Creatinine 0.5 L
Glucose 95
Calcium 8.7
Vital Signs:
Vital Signs
Temp Pulse Resp BP Pulse Ox
97.9 F 70 18 132/69 94
10/01/24 07:55 10/01/24 07:55 10/01/24 07:55 10/01/24 07:55 10/01/24 07:55
I&O
09/30/24 10/01/24 10/02/24
06:59 06:59 06:59
Intake Total 2099 / 2099 400 / 400
Output Total 875 / 875 750 / 750
Balance 1225 / 1225 -350 / -350
[2024-10-01] MEDS: TYLENOL 650 MG PO ×2 (08:12→12:16)
--- NOTE | 2024-10-01 11:00 | PTCARENOTE ---
Physician wants patient to remain on tele today.
--- NOTE | 2024-10-01 15:14 | CM ---
CM notified by MD that pt is medically stable for discharge. Chart reviewed.
Updated clinical sent to [facility] via [employer]-pending return calls regarding bed offers at this time.
PT/OT should continue to work with pt while IP and pending bed offer for SNF.
MD updated.
CM/SW will continue to follow to ensure a safe and timely dc.
--- NOTE | 2024-10-01 18:33 | PTCARENOTE ---
Patient restless, anxious at times, confused to place and time. Family at bedside providing constant reassurance and sitting next to patient.4 side rails remain up, patient makes attempts to climb OOB. Patient can be reoriented, but quickly forgets.
Patient moving all extremities, no c/o pain at present, voiding yoel urine in urinal, eating 25% of meals.
[2024-10-01] MEDS: ZETIA 10 MG PO (19:12)
[2024-10-01] MEDS: FLOMAX 0.4 MG PO (19:12)
[2024-10-02] VITALS (10 sets, daily range): BP systolic 97–132; BP diastolic 54–80; PULSE 69; O2SAT 97; BMI 20.9
[2024-10-02] MEDS: SINEMET 25-100 2 TABLET PO ×6 (04:31→23:52)
[2024-10-02] MEDS: SYNTHROID 150 MCG PO (04:31)
[2024-10-02] MEDS: COMTAN 200 MG PO ×6 (04:31→23:53)
--- NOTE | 2024-10-02 06:33 | W.PN.HOSP.TC ---
Today's Communication/Plan
-
see a/p
Assessment / Plan
Assessment / Plan
Physical Exam
General: Well Developed, Well Nourished and No Apparent Distress
HEENT: Normocephalic, Moist mucous membranes and Atraumatic
Respiratory: Clear to Auscultation Bilaterally
Cardiac: S1/S2 and Regular Rate and Rhythm
GI: Soft, Non Tender, Non Distended and Normal Bowel Sounds
Musculoskeletal: No Cyanosis and No Edema. LLE surgical site bandage C/D/I.
Skin: Warm. Dry.
Neuro: AOx3 conversant coherent
Assessment/Plan
78-year-old male with past medical history of CAD status post stents, possible CHF, Parkinson's disease, BPH, hypothyroidism, constipation, hypercholesterolemia and COPD, presented for left hip injury. He tripped and fell outside the grocery store
and landed on his left hip and left upper extremity. Denied head injury or loss of consciousness or any prodromal symptoms prior to fall. Not on blood thinners. He normally ambulates with a walker. He has falls occasionally. No recent chest pain or
shortness of breath. Denies any difficulties with anesthesia previously.
#Ambulatory dysfunction with fall and left hip displaced femoral neck fracture status post left hip hemiarthroplasty on 09/29/24
- Tylenol, Dilaudid as needed for pain
- Orthopedics consulted
- Continue WBAT B/L LEs on walker/assistance
- PT/OT, THPs x 6 weeks
- ASA 325mg daily x 4 weeks (Day 1 was September 28, 2024)
- ice to hip
- Dressing on x 2 weeks
- Outpatient Ortho follow-up 4 weeks (from 09/29/24), sooner if necessary
- Pain control: Hold narcotic pain meds (pain is controlled well, patient has not needed any Tramadol and is not frequently needing Dilaudid -- patient's son is concerned narcotic medications will make patient confused/delirious)
New onset Afib RVR 10/02
has hx paroxysmal afib cardioverted, follows outpatient solderer assembler Dr. Orona
-Cardio eval appreciated
-afib spontaneously converted back to Sinus rhythm following once IV lopressor 5 mg and 250 cc IVF bolus
-ECHO appreciated EF 55-60% no significant valve abn's
#Agitation/Sundowning
-Patient's son said no Ativan/benzodiazepines or narcotic pain medications UNLESS patient absolutely needs them
-Patient's son said he will there to redirect the patient as much as possible
#Questionable Hematuria - RESOLVED
-Urine did not look strongly red - seen in Condom Cath bag on 09/29/24
-Discussed with urology on 09/29/24 and since patient's Hgb is stable, okay to continue the Aspirin 325 mg daily for now
-Recheck CBC outpatient/check UA outpatient
#Post-Op Fever - RESOLVED
-Temp 100.4 right at the end of surgery on 09/28/24, no fever since
-Encourage incentive spirometry, pulmonary toilet, mobilization as tolerated
-Patient continues to have NO signs or symptoms of UTI, Pneumonia, DVT or surgical site infection
#Drug induced Encephalopathy
-Post-op from anesthesia and meds periop
-RESOLVED
#Parkinson's disease
- Continue carbidopa/levodopa/entacapone
#CAD status post stents
- Continue aspirin
#Possible chronic HFpEF
- Patient appears and examines as euvolemic
- Hold Lasix given intermittent hypotension
#Asymptomatic Hypotension
-Received Furosemide initially, and also had asymptomatic hypotension on 09/30/24
-Held Lasix
-Provided Normal Saline IV fluids bolus with subsequent improvement
#BPH
- Continue finasteride, tamsulosin
#Hypothyroidism
- Continue Levothyroxine
#Possible Constipation
- Continue bowel regimen
- Abdominal X-ray from 09/30/24 with nonobstructive bowel gas pattern and moderate colonic stool burden.
- Laxatives Intensity: Miralax changed to daily (from home Q48H), and added Senokot-S BID
- May need suppository
#Hypercholesterolemia
- Continue Zetia
#COPD
- Continue inhalers
#Chronic stomach problem
- Patient did not tolerate PPI
#Former smoker
#Moderate protein calorie malnutrition
PT/OT appreciated SNF rehab
case mgmt consult appreciated
Code Status: Full Code
DVT Prophylaxis: SCDs. Aspirin 325 mg daily.
Discussed with patient, patient's son Lamont, and patient's Cha
I spent a total of 50 minutes with the patient or on the floor. More than 50% of this time involved counseling and coordination of care.
Anticipated Discharge: 24 - 48 hours
Subjective/Interval History
-
Date of Service: October 02, 2024
afib rvr this morning patient notes associate chest pressure palpitations. Otherwise calm no acute distress AOx3. afib rvr since resolved with IV lopressor 5 mg and 250 cc IVF bolus once.
Objective Data
-
Labs:
Laboratory Results
10/02/24
06:00
WBC Pending
Hgb Pending
Hct Pending
Plt Count Pending
Sodium Pending
Potassium Pending
Chloride Pending
Carbon Dioxide Pending
BUN Pending
Creatinine Pending
Glucose Pending
Calcium Pending
Vital Signs:
Vital Signs
Temp Pulse Resp BP Pulse Ox
98.8 F 65 16 109/57 96
10/02/24 03:00 10/02/24 03:00 10/02/24 03:00 10/02/24 03:00 10/02/24 03:00
I&O
09/30/24 10/01/24 10/02/24
06:59 06:59 06:59
Intake Total 2100 / 2100 400 / 400 410 / 410
Output Total 875 / 875 750 / 750 880 / 880
Balance 1225 / 1225 -350 / -350 -470 / -470
[2024-10-02] MEDS: SPIRIVA RESPIMAT 2.5 MCG 2 PUFF INH (07:23)
[2024-10-02] MEDS: SYMBICORT 80/4.5 MCG INHALER 2 PUFF INH ×2 (07:23→20:37)
[2024-10-02 07:31] LABS: Hematocrit 30.6 % (39.0-52.0); Hemoglobin 10.7 g/dL (13.0-18.0); Mean Corpuscular Hgb 32.6 pg (27.0-31.0); Mean Corpuscular Volume 93.3 fL (80.0-94.0); Platelet Count 217 10^3/uL (130-400); Red Blood Cell Count 3.28 10^6/uL (4.70-6.10); Red Cell Dist. Width 13.8 % (11.5-14.5); White Blood Cell Count 5.7 10^3/uL (4.8-10.8)
--- NOTE | 2024-10-02 07:39 | PTCARENOTE ---
received pt in afib rate uncontrolled, EKG shows AFIB RVR, attending notified
[2024-10-02] MEDS: LOPRESSOR 5 MG IV (07:59)
[2024-10-02] MEDS: ASPIRIN 325 MG PO (08:05)
[2024-10-02] MEDS: MIRALAX 17 GRAMS PO (08:06)
[2024-10-02] MEDS: SENOKOT-S 1 TABLET PO ×2 (08:07→19:46)
[2024-10-02] MEDS: PROSCAR 5 MG PO (08:07)
[2024-10-02 08:33] LABS: Blood Urea Nitrogen 19 mg/dl (9-20); Calcium 8.5 mg/dl (8.4-10.2); Carbon Dioxide 26 mmol/L (22-30); Chloride 108 mmol/L (98-107); Estimated Creatinine Clearance 87 ml/min; Glucose 87 mg/dl (70-99); Potassium 4.1 mmol/L (3.5-5.1); Sodium 137 mmol/L (135-145); eGFR > 60.00
[2024-10-02] MEDS: NSS 250 IV (08:46)
[2024-10-02 08:54] LABS: Troponin I 0.022 ng/ml
[2024-10-02 08:59] LABS: NT-proBNP 1930 pg/ml
--- NOTE | 2024-10-02 09:12 | CON.CAR ---
Addendum entered and electronically signed by Augusto Combs MD 10/02/24 10:28:
I saw and examined the patient.
The BUTTONHOLE TACKER's note was reviewed and I agree with the note.
Comment:
78-year-old man with CAD and prior stenting, Parkinson's disease, atrial fibrillation and atrial flutter (not on anticoagulation) who presents following a fall with left hip fracture s/p ORIF on 09/28/24. Postoperative course was complicated by 1
hour of atrial fibrillation with RVR from 7 to 8 AM this morning. Patient was symptomatic with chest pressure and shortness of breath. At the time of my assessment, he is in normal sinus rhythm, no murmurs, trace lower extremity edema, and clear
lungs. Labs notable for troponin 0.022, BNP 1930. For his paroxysmal atrial fibrillation, unfortunately we will not be able to do much. We cannot add on rate control given that he is bradycardic when in sinus rhythm and he has chronic hypotension
likely from autonomic dysfunction in the setting of Parkinson's disease. He is not a great candidate for anticoagulation due to frequent falls. I discussed this plan with his outpatient communication assistant Dr. Orona and he is in agreement. He will
plan to see him in follow-up and at that time they can do an ambulatory monitor to see if he is having any more atrial fibrillation. At that time he will plan to discuss left atrial appendage occlusion device.
Cardiology will plan to sign off at this time. Please call with any additional questions or concerns.
Original Note:
Consultation
Consultation Request
Date/Time Consultation Requested: 10/02/2024 08:00
Date/Time Consultation Performed: 10/02/2024 08:45
Requesting Provider: Dr. Billy
Performing Provider: ANA CRISTINA Adair for Dr. Combs
Reason for Consultation: Atrial fibrillation
Medical History
-
Chief Complaint: Fall with hip pain
History of Present Illness:
Lamont Stark is a 78-year-old male with CAD (prior stenting), possible HFpEF, Parkinson's disease, hypothyroidism, dyslipidemia, and former smoker with COPD who presented to the emergency department 09/27/2024 after a fall at the grocery store. He
landed on his left hip and endorsed pain. He was seen by orthopedics and was found to have a left hip displaced femoral neck fracture. He went to the OR 09/28/2024. The plan was for him to go to SNF/rehabilitation. This morning, he went into new
onset atrial fibrillation with rapid ventricular response. He is back in sinus rhythm. On exam, he denies chest pain, shortness of breath, and palpitations. He has been having issues with confusion this admission.
Past Medical History
Past Medical History: CAD (with stenting), CHF, COPD, Hypercholesterolemia, Hypothyroidism and Other (Parkinson's)
Past Surgical History: Orthopedic
Social History
Tobacco: Former Smoker
Alcohol: None
Personal:
Living: With Family ()
Employment: Retired
Family History
Family History: Unable to Obtain
Allergies / Home Medications
Allergy/AdvReac Type Severity Reaction Status Date / Time
pantoprazole Allergy Shortness Verified 09/27/24 17:23
of Breath
quetiapine AdvReac Intermediate Unknown Verified 09/29/24 22:27
�Medication �Instructions �Recorded �Confirmed �Type
aspirin 81 mg tablet,delayed 81 mg PO DAILY Blood Clot 09/27/24 09/27/24 History
release Prevention/Tx
carbidopa 50 mg-levodopa 200 1 tab PO Q4H parkinson's disease 09/27/24 09/27/24 History
mg-entacapone 200 mg tablet
ezetimibe 10 mg tablet (Zetia) 10 mg PO QPM cholesterol 09/27/24 09/27/24 History
finasteride 5 mg tablet 5 mg PO DAILY Urinary Issue 09/27/24 09/27/24 History
fluticasone fur. 100 mcg-umeclid 1 inh inhalation R DAILY 09/27/24 09/27/24 History
62.5 mcg-vilant 25 mcg Lung/Breathing Issues
inhalat.powder (Trelegy Ellipta)
furosemide 20 mg tablet (Lasix) 20 mg PO DAILY Fluid 09/27/24 09/27/24 History
Retention/Swelling
ipratropium 0.5 mg-albuterol 3 mg 3 ml inhalation R Q6HPRN PRN sob 09/27/24 09/27/24 History
(2.5 mg base)/3 mL nebulization
soln
levothyroxine 150 mcg tablet 150 mcg PO MOTUWETHFRSA Thyroid 09/27/24 09/27/24 History
(Synthroid)
polyethylene glycol 3350 17 gram 17 g PO Q48H Constipation 09/27/24 09/27/24 History
oral powder packet (Miralax)
tamsulosin 0.4 mg capsule (Flomax) 0.4 mg PO QPM Urinary Issue 09/27/24 09/27/24 History
Review of Systems
-
History Source: Patient
All other systems: Negative unless noted
Constitutional: No Symptoms
EENT: No Symptoms
Respiratory: No Symptoms
Cardiac: No Symptoms
Abdomen/GI: No Symptoms
: No Symptoms
Musculoskeletal: No Symptoms
Skin: No Symptoms
Neurological: No Symptoms
Endocrine: No Symptoms
Hematologic/Lymphatic: No Symptoms
Physical Exam
Vital Signs
Temp Pulse Resp BP Pulse Ox
97.8 F 72 22 97/54 99
10/02/24 07:15 10/02/24 08:19 10/02/24 07:49 10/02/24 08:19 10/02/24 07:49
Lab Results
10/02/24 06:59
10/02/24 06:59
Troponin I 0.022 ng/ml 10/02/24 08:20
Gny-S-Dhhyhqccrog Pept 1930 pg/ml 10/02/24 06:59
Physical Exam
General: Well Developed, Well Nourished, No Apparent Distress and Comfortable
HEENT: Normocephalic, Anicteric and Moist Mucous Membranes
Respiratory: Clear and Non Labored Respirations
Cardiac: S1/S2 and Regular Rhythm
Breast: Deferred by me
GI: Soft, Non Tender, Non Distended and Normal Bowel Sounds
Rectal: Deferred by Provider
Genito-urinary: No Costovertebral Tender
Musculoskeletal: No Clubbing
Skin: Warm and Dry
Neuro: Awake and Alert
Hematologic/Lymphatic: No Lymphadenopathy
Psych: Calm
Impression / Plan
-
I/P: 78M with CAD (prior stenting), possible HFpEF, Parkinson's disease, hypothyroidism, dyslipidemia, and former smoker with COPD who presented to the emergency department 09/27/2024 after a fall at the grocery store -> Left hip fx. cardiology
consulted for atrial fibrillation
Outpatient communication assistant: Dr. Virgil Orona
Paroxysmal atrial fibrillation
-In sinus, episode lasted about one hour
-No rate controlling agents due to hypotension
-Oral Anticoagulation: None prior to arrival
-[id number]: score at least 3 (age 75 or more, Vascular disease), might be 4 if he has CHF
Ambulatory dysfunction with fall and left hip displaced femoral neck fracture status post left hip hemiarthroplasty 09/28/2024
Coronary artery disease
-Stable without chest pain, continue aspirin, current doses per orthopedics
-Chest pain-free, troponins flat since 09/30/2024
Hypotension, asymptomatic, receiving IV fluids by primary service
Former smoker with COPD, no acute exacerbation
Parkinson's disease, on carbidopa�levodopa�entacapone
Possible HFpEF, on furosemide as an outpatient
Data Reviewed
-
EKG: Report Reviewed by me
Labs: Labs Reviewed by me
--- NOTE | 2024-10-02 09:35 | PTCARENOTE ---
pt in sinus rhythm s/p IV lopressor. cardiology at bedside
--- NOTE | 2024-10-02 13:22 | CM ---
Patient seen at bedside with patient son, CM called to [facility], no male beds today or tomorrow. No beds at [facility], [facility]. Bed available at [place] and [place]. CM updated patient son and he indicated he would look at
options and call CM back with additional referral options. CM will continue to follow for discharge planning needs.
Plan; SNF placement
[2024-10-02] MEDS: FLOMAX 0.4 MG PO (17:00)
[2024-10-02] MEDS: ZETIA 10 MG PO (17:00)
[2024-10-02] MEDS: TYLENOL 650 MG PO (23:53)
[2024-10-03] VITALS (8 sets, daily range): BP systolic 81–129; BP diastolic 38–97; BMI 21.3
[2024-10-03] MEDS: COMTAN 200 MG PO ×5 (04:26→19:50)
[2024-10-03] MEDS: SINEMET 25-100 2 TABLET PO ×5 (04:26→19:50)
[2024-10-03] MEDS: TYLENOL 650 MG PO ×2 (04:26→22:18)
[2024-10-03] MEDS: SYNTHROID 150 MCG PO (05:55)
--- NOTE | 2024-10-03 06:21 | W.PN.HOSP.TC ---
Today's Communication/Plan
-
see a/p
Assessment / Plan
Assessment / Plan
Physical Exam
General: Well Developed, Well Nourished and No Apparent Distress
HEENT: Normocephalic, Moist mucous membranes and Atraumatic
Respiratory: Clear to Auscultation Bilaterally
Cardiac: S1/S2 and Regular Rate and Rhythm
GI: Soft, Non Tender, Non Distended and Normal Bowel Sounds
Musculoskeletal: No Cyanosis and No Edema. LLE surgical site bandage C/D/I.
Skin: Warm. Dry.
Neuro: AOx3 conversant coherent
Assessment/Plan
78-year-old male with past medical history of CAD status post stents, possible CHF, Parkinson's disease, BPH, hypothyroidism, constipation, hypercholesterolemia and COPD, presented for left hip injury. He tripped and fell outside the grocery store
and landed on his left hip and left upper extremity. Denied head injury or loss of consciousness or any prodromal symptoms prior to fall. Not on blood thinners. He normally ambulates with a walker. He has falls occasionally. No recent chest pain or
shortness of breath. Denies any difficulties with anesthesia previously.
#Ambulatory dysfunction with fall and left hip displaced femoral neck fracture status post left hip hemiarthroplasty on 09/29/24
- Tylenol, Dilaudid as needed for pain
- Orthopedics consulted
- Continue WBAT B/L LEs on walker/assistance
- PT/OT, THPs x 6 weeks
- ASA 325mg daily x 4 weeks (Day 1 was September 28, 2024)
- ice to hip
- Dressing on x 2 weeks
- Outpatient Ortho follow-up 4 weeks (from 09/29/24)
- Pain control: Hold narcotic pain meds (pain is controlled well, patient has not needed any Tramadol and is not frequently needing Dilaudid -- patient's son is concerned narcotic medications will make patient confused/delirious)
New onset Afib RVR 10/02 since resolved
has hx paroxysmal afib cardioverted, follows outpatient musical performer Dr. Orona
-Cardio eval appreciated
-afib spontaneously converted back to Sinus rhythm following once IV lopressor 5 mg and 250 cc IVF bolus
-ECHO appreciated EF 55-60% no significant valve abn's
#Subjective SOB, difficulty clearing sputum
CXR appreciated no acute abn's
incentive spirometer
check sputum cx
COVID Flu neg
Mucinex, Acapella, Declined VEST therapy
#Intermittent Hypotension
possibly d/t low volume poor oral in take.
low dose midodrine started with holding parameters
#Agitation/post-op Delirium
#Drug induced Encephalopathy
-avoid Ativan/benzodiazepines or narcotic pain medications unless patient absolutely needs them
-son also named Lamont available to help redirect patient as necessary.
-mental status since improved, baseline
#Questionable Hematuria - resolved
#Post-Op Fever - resolved
-single fever spike Temp 100.4 at the end of surgery 09/28/24, no further fever since
-Encourage incentive spirometry, pulmonary toilet, mobilization as tolerated
#Parkinson's disease
- Continue carbidopa/levodopa/entacapone
#CAD status post stents
- Continue aspirin
#Hx chronic HFpEF
- Patient appears euvolemic at this time
- Home Lasix resumed with holding parameters
#BPH
- Continue finasteride, tamsulosin
#Hypothyroidism
- Continue Levothyroxine
#Constipation
- Continue bowel regimen
- Abdominal X-ray from 09/30/24 with nonobstructive bowel gas pattern and moderate colonic stool burden.
- daily Miralax Senokot-S BID
#Hypercholesterolemia
- Continue Zetia
#COPD
- Continue inhalers
#Chronic stomach problem/cramping
#Possible GERD
- Patient did not tolerate PPI
-Pepcid started, cont
-maalox prn
#Legs cramping/pain
Bengay-like cream prn
#Former smoker
#Moderate protein calorie malnutrition
PT/OT appreciated SNF rehab
case mgmt consult appreciated
Code Status: Full Code
DVT Prophylaxis: SCDs. Aspirin 325 mg daily.
Discussed with patient and patient's son Lamont
I spent a total of 45 minutes with the patient or on the floor. More than 50% of this time involved counseling and coordination of care.
Anticipated Discharge: Within 24 hours
Subjective/Interval History
-
Date of Service: October 03, 2024
briefly weaned off oxygen supplementation, patient however reporting symptomatic shortness of breath improved with restart nasal cannula. Endorses weakness intermittent abd and legs cramping.
Objective Data
-
Labs:
Laboratory Results
10/03/24
06:00
WBC Pending
Hgb Pending
Hct Pending
Plt Count Pending
Sodium Pending
Potassium Pending
Chloride Pending
Carbon Dioxide Pending
BUN Pending
Creatinine Pending
Glucose Pending
Calcium Pending
Vital Signs:
Vital Signs
Temp Pulse Resp BP Pulse Ox
98.7 F 55 17 129/66 100
10/03/24 03:05 10/03/24 03:05 10/03/24 03:05 10/03/24 03:05 10/03/24 03:05
I&O
10/01/24 10/02/24 10/03/24
06:59 06:59 06:59
Intake Total 400 / 400 410 / 410 800 / 800
Output Total 750 / 750 880 / 880 775 / 775
Balance -350 / -350 -470 / -470
[2024-10-03 07:09] LABS: Hematocrit 30.6 % (39.0-52.0); Hemoglobin 10.7 g/dL (13.0-18.0); Mean Corpuscular Hgb 32.8 pg (27.0-31.0); Mean Corpuscular Volume 93.9 fL (80.0-94.0); Mean Platelet Volume 8.9 fL (7.4-10.4); Platelet Count 230 10^3/uL (130-400); Red Blood Cell Count 3.26 10^6/uL (4.70-6.10); Red Cell Dist. Width 13.7 % (11.5-14.5); White Blood Cell Count 4.7 10^3/uL (4.8-10.8)
[2024-10-03] MEDS: SYMBICORT 80/4.5 MCG INHALER 2 PUFF INH ×2 (07:39→18:21)
[2024-10-03] MEDS: SPIRIVA RESPIMAT 2.5 MCG 2 PUFF INH (07:39)
[2024-10-03] MEDS: PROSCAR 5 MG PO (08:12)
[2024-10-03] MEDS: SENOKOT-S 1 TABLET PO ×2 (08:12→19:50)
[2024-10-03] MEDS: LIDOCAINE 4% PATCH 1 PATCH TOPICAL (08:13)
[2024-10-03] MEDS: ASPIRIN 325 MG PO (08:13)
[2024-10-03] MEDS: LASIX 20 MG PO (08:14)
[2024-10-03 08:16] LABS: Blood Urea Nitrogen 19 mg/dl (9-20); Calcium 8.5 mg/dl (8.4-10.2); Carbon Dioxide 27 mmol/L (22-30); Chloride 107 mmol/L (98-107); Estimated Creatinine Clearance 89 ml/min; Glucose 92 mg/dl (70-99); Phosphorus 3.1 mg/dl (2.5-4.5); Potassium 4.3 mmol/L (3.5-5.1); Sodium 137 mmol/L (135-145); eGFR > 60.00
[2024-10-03] MEDS: MIRALAX PO (08:17)
--- NOTE | 2024-10-03 10:03 | CM ---
Addendum entered by Tova Perales 10/03/24 15:22:
Physician requested patient discharge be delayed until tomorrow. CM updated liaison will review in am.
Addendum entered by Tova Perales 10/03/24 11:34:
Patient seen at bedside. Patient son confirmed he would like patient to go to [facility]. Per Liaison patient has bed available at requested facility and would be able to go today if medically appropriate. CM sent tt to physician to request
update. Patient son given IMM and is reviewing form. Patient report to [phone]/fax [phone]. CM completed transfer forms and placed on chart. CM will continue to follow for discharge planning needs.
Plan; SNF; pending physician assessment
Original Note:
Family requested referrals to [facility], [facility] in addition to current referrals. CM called and left for Claudia liaison with SNF options. Await response.
[2024-10-03] MEDS: ProAmatine PO (12:38)
[2024-10-03] MEDS: PEPCID 20 MG PO (13:49)
[2024-10-03] MEDS: MUCINEX 600 MG PO ×2 (13:49→19:50)
[2024-10-03] MEDS: BenGay-Like 1 APPLIC TOPICAL (14:13)
[2024-10-03 14:14] LABS: Iron 46 ug/dl (49-181)
[2024-10-03 14:23] LABS: Percent Saturation 22 % (20-50); Total Iron Binding Capacity 206 ug/dl (261-462)
[2024-10-03 14:31] LABS: COVID-19 Antigen Negative (Negative)
[2024-10-03 14:51] LABS: Vitamin B12 341 pg/ml (239-931)
[2024-10-03] MEDS: ZETIA 10 MG PO (17:53)
[2024-10-03] MEDS: FLOMAX 0.4 MG PO (17:53)
[2024-10-03] MEDS: ProAmatine 2.5 MG PO (17:54)
[2024-10-04] VITALS (7 sets, daily range): BP systolic 109–154; BP diastolic 54–80; PULSE 72; O2SAT 94
[2024-10-04] MEDS: COMTAN 200 MG PO ×6 (00:29→21:50)
[2024-10-04] MEDS: SINEMET 25-100 2 TABLET PO ×6 (00:29→21:50)
[2024-10-04] MEDS: MAALOX 30 ML PO (00:30)
[2024-10-04] MEDS: SYNTHROID 150 MCG PO (03:39)
--- NOTE | 2024-10-04 06:49 | W.PN.HOSP.TC ---
Today's Communication/Plan
-
see a/p
Assessment / Plan
Assessment / Plan
Physical Exam
General: Well Developed, Well Nourished and No Apparent Distress
HEENT: Normocephalic, Moist mucous membranes and Atraumatic
Respiratory: Clear to Auscultation Bilaterally
Cardiac: S1/S2 and Regular Rate and Rhythm
GI: Soft, Non Tender, Non Distended and Normal Bowel Sounds
Musculoskeletal: No Cyanosis and No Edema. LLE surgical site bandage C/D/I.
Skin: Warm. Dry.
Neuro: AOx3 conversant coherent
Assessment/Plan
78-year-old male with past medical history of CAD status post stents, possible CHF, Parkinson's disease, BPH, hypothyroidism, constipation, hypercholesterolemia and COPD, presented for left hip injury. He tripped and fell outside the grocery store
and landed on his left hip and left upper extremity. Denied head injury or loss of consciousness or any prodromal symptoms prior to fall. Not on blood thinners. He normally ambulates with a walker. He has falls occasionally. No recent chest pain or
shortness of breath. Denies any difficulties with anesthesia previously.
#Ambulatory dysfunction with fall and left hip displaced femoral neck fracture status post left hip hemiarthroplasty on 09/29/24
- Tylenol, Dilaudid as needed for pain
- Orthopedics consulted
- Continue WBAT B/L LEs on walker/assistance
- PT/OT, THPs x 6 weeks
- ASA 325mg daily x 4 weeks (Day 1 was September 28, 2024)
- ice to hip
- Dressing on x 2 weeks
- Outpatient Ortho follow-up 4 weeks (from 09/29/24)
- Pain control: Hold narcotic pain meds (pain is controlled well, patient has not needed any Tramadol and is not frequently needing Dilaudid -- patient's son is concerned narcotic medications will make patient confused/delirious)
New onset Afib RVR 10/02 since resolved
has hx paroxysmal afib cardioverted, follows outpatient elastic cutter Dr. Orona
-Cardio eval appreciated
-afib spontaneously converted back to Sinus rhythm following once IV lopressor 5 mg and 250 cc IVF bolus
-ECHO appreciated EF 55-60% no significant valve abn's
#Subjective SOB, difficulty clearing sputum
CXR appreciated no acute abn's
incentive spirometer
check sputum cx
COVID Flu neg
Mucinex, Acapella
#Intermittent Hypotension
possibly d/t low volume poor oral in take.
low dose midodrine started with holding parameters
#Agitation/post-op Delirium
#Drug induced Encephalopathy
-avoid Ativan/benzodiazepines or narcotic pain medications unless patient absolutely needs them
-son also named Lamont available to help redirect patient as necessary.
-mental status since improved, baseline
#Questionable Hematuria - resolved
#Post-Op Fever - resolved
-single fever spike Temp 100.4 at the end of surgery 09/28/24, no further fever since
-Encourage incentive spirometry, pulmonary toilet, mobilization as tolerated
#Parkinson's disease
- Continue carbidopa/levodopa/entacapone
#CAD status post stents
- Continue aspirin
#Hx chronic HFpEF
- Patient appears euvolemic at this time
- Home Lasix resumed with holding parameters
#BPH
- Continue finasteride, tamsulosin
#Hypothyroidism
- Continue Levothyroxine
#Constipation
- Continue bowel regimen
- Abdominal X-ray from 09/30/24 with nonobstructive bowel gas pattern and moderate colonic stool burden.
- daily Miralax Senokot-S BID
#Hypercholesterolemia
- Continue Zetia
#COPD
- Continue inhalers
#Chronic stomach problem/cramping
#Possible GERD
- Patient did not tolerate PPI
-Pepcid started, cont
-maalox prn
#Legs cramping/pain
Bengay-like cream prn
#Former smoker
#Moderate protein calorie malnutrition
PT/OT appreciated SNF rehab
case mgmt consult appreciated
Code Status: Full Code
DVT Prophylaxis: SCDs. Aspirin 325 mg daily.
Discussed with patient and patient's son Lamont
I spent a total of 45 minutes with the patient or on the floor. More than 50% of this time involved counseling and coordination of care.
Anticipated Discharge: Within 24 hours
Subjective/Interval History
-
Date of Service: October 04, 2024
notes improvement in symptoms weakness, coughing, pain, though not resolved.
Objective Data
-
Labs:
Laboratory Results
10/04/24
05:59
WBC Pending
Hgb Pending
Hct Pending
Plt Count Pending
Sodium Pending
Potassium Pending
Chloride Pending
Carbon Dioxide Pending
BUN Pending
Creatinine Pending
Glucose Pending
Calcium Pending
Vital Signs:
Vital Signs
Temp Pulse Resp BP Pulse Ox
97.8 F 56 18 153/73 100
10/04/24 03:30 10/04/24 03:30 10/04/24 03:30 10/04/24 03:30 10/04/24 03:30
I&O
10/02/24 10/03/24 10/04/24
06:59 06:59 06:59
Intake Total 410 / 410 800 / 800 240 / 240
Output Total 880 / 880 775 / 775 1270 / 1270
Balance -470 / -470 -1030 / -1030
[2024-10-04 06:54] LABS: Hematocrit 31.5 % (39.0-52.0); Hemoglobin 10.9 g/dL (13.0-18.0); Mean Corp Hgb Conc. 34.6 g/dL (33.0-37.0); Mean Corpuscular Hgb 32.7 pg (27.0-31.0); Mean Corpuscular Volume 94.6 fL (80.0-94.0); Platelet Count 236 10^3/uL (130-400); Red Blood Cell Count 3.33 10^6/uL (4.70-6.10); Red Cell Dist. Width 13.6 % (11.5-14.5); White Blood Cell Count 4.9 10^3/uL (4.8-10.8)
[2024-10-04 07:36] LABS: Blood Urea Nitrogen 17 mg/dl (9-20); Calcium 8.6 mg/dl (8.4-10.2); Chloride 106 mmol/L (98-107); Glucose 83 mg/dl (70-99); Magnesium 2.1 mg/dl (1.6-2.3); Phosphorus 3.1 mg/dl (2.5-4.5); Potassium 4.3 mmol/L (3.5-5.1); Sodium 136 mmol/L (135-145)
[2024-10-04] MEDS: SPIRIVA RESPIMAT 2.5 MCG 2 PUFF INH (07:50)
[2024-10-04] MEDS: SYMBICORT 80/4.5 MCG INHALER 2 PUFF INH ×2 (07:50→19:38)
[2024-10-04 07:51] LABS: Carbon Dioxide 27 mmol/L (22-30); Estimated Creatinine Clearance 89 ml/min; eGFR > 60.00
[2024-10-04] MEDS: ASPIRIN 325 MG PO (09:13)
[2024-10-04] MEDS: MUCINEX 600 MG PO ×2 (09:14→21:50)
[2024-10-04] MEDS: PROSCAR 5 MG PO (09:14)
[2024-10-04] MEDS: ProAmatine 2.5 MG PO ×3 (09:14→17:31)
[2024-10-04] MEDS: SENOKOT-S 1 TABLET PO ×2 (09:14→21:50)
[2024-10-04] MEDS: PEPCID 20 MG PO (09:15)
[2024-10-04] MEDS: MIRALAX 17 GRAMS PO (09:15)
[2024-10-04] MEDS: LASIX 20 MG PO (09:16)
[2024-10-04] MEDS: LIDOCAINE 4% PATCH 1 PATCH TOPICAL (09:16)
[2024-10-04] MEDS: VITAMIN B-12 1000 MCG PO (09:17)
--- NOTE | 2024-10-04 11:36 | CM ---
physician asked for delay to tomorrow for SNF; awaiting call back from facility to confirm that they can hold bed. CM will continue to follow for discharge planning needs.
Plan; SNF
[2024-10-04] MEDS: VENTOLIN NEBULES 2.5 MG INH ×2 (14:05→21:17)
[2024-10-04] MEDS: FLOMAX 0.4 MG PO (17:31)
[2024-10-04] MEDS: ZETIA 10 MG PO (17:31)
[2024-10-04] MEDS: TYLENOL 650 MG PO (21:56)
[2024-10-05] VITALS (9 sets, daily range): BP systolic 85–144; BP diastolic 46–93; PULSE 70–72; O2SAT 95; BMI 21.4
[2024-10-05] MEDS: SINEMET 25-100 2 TABLET PO ×6 (00:57→19:57)
[2024-10-05] MEDS: COMTAN 200 MG PO ×6 (00:57→19:57)
[2024-10-05] MEDS: SYNTHROID 150 MCG PO (04:59)
--- NOTE | 2024-10-05 06:47 | W.PN.HOSP.TC ---
Today's Communication/Plan
-
midodrine increased to 5 mg TID
pepcid increased to BID
space out morning meds as possible
ok to dc preventive medicine physician.
Assessment / Plan
Assessment / Plan
Physical Exam
General: Well Developed, Well Nourished and No Apparent Distress
HEENT: Normocephalic, Moist mucous membranes and Atraumatic
Respiratory: Clear to Auscultation Bilaterally
Cardiac: S1/S2 and Regular Rate and Rhythm
GI: Soft, Non Tender, Non Distended and Normal Bowel Sounds
Musculoskeletal: No Cyanosis and No Edema. LLE surgical site bandage C/D/I.
Skin: Warm. Dry.
Neuro: AOx3 conversant coherent
Assessment/Plan
78-year-old male with past medical history of CAD status post stents, possible CHF, Parkinson's disease, BPH, hypothyroidism, constipation, hypercholesterolemia and COPD, presented for left hip injury. He tripped and fell outside the grocery store
and landed on his left hip and left upper extremity. Denied head injury or loss of consciousness or any prodromal symptoms prior to fall. Not on blood thinners. He normally ambulates with a walker. He has falls occasionally. No recent chest pain or
shortness of breath. Denies any difficulties with anesthesia previously.
#Ambulatory dysfunction with fall and left hip displaced femoral neck fracture status post left hip hemiarthroplasty on 09/29/24
- Tylenol, Dilaudid as needed for pain
- Orthopedics consulted
- Continue WBAT B/L LEs on walker/assistance
- PT/OT, THPs x 6 weeks
- ASA 325mg daily x 4 weeks (Day 1 was September 28, 2024)
- ice to hip
- Dressing on x 2 weeks
- Outpatient Ortho follow-up 4 weeks (from 09/29/24)
- Pain control: Hold narcotic pain meds d/t hx confusion/delirium
New onset Afib RVR 10/02 since resolved
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
-Cardio eval appreciated
-afib spontaneously converted back to Sinus rhythm following once IV lopressor 5 mg and 250 cc IVF bolus
-ECHO appreciated EF 55-60% no significant valve abn's
#Subjective SOB, difficulty clearing sputum
#Coughing
CXR appreciated no acute abn's
incentive spirometer
sputum cx contaminated
CR chest appreciated no significant acute abn's, atelectasis noted
COVID Flu neg
Mucinex, Acapella
symptoms possibly exacerbated by GERD, pepcid started and increased to BID, maalox prn, recommended to space out morning meds as possible.
#Intermittent Hypotension
possibly d/t low volume poor oral in take.
low dose midodrine started with holding parameters
midodrine increased to 5 mg TID
#Agitation/post-op Delirium
#Drug induced Encephalopathy
-avoid Ativan/benzodiazepines or narcotic pain medications unless patient absolutely needs them
-son also named Lamont available to help redirect patient as necessary.
-mental status since improved, baseline
#Questionable Hematuria - resolved
#Post-Op Fever - resolved
-single fever spike Temp 100.4 at the end of surgery 09/28/24, no further fever since
-Encourage incentive spirometry, pulmonary toilet, mobilization as tolerated
#Parkinson's disease
- Continue carbidopa/levodopa/entacapone
#CAD status post stents
- Continue aspirin
#Hx chronic HFpEF
- Patient appears euvolemic at this time
- Home Lasix resumed with holding parameters
#BPH
- Continue finasteride, tamsulosin
#Hypothyroidism
- Continue Levothyroxine
#Constipation
- Continue bowel regimen
- Abdominal X-ray from 09/30/24 with nonobstructive bowel gas pattern and moderate colonic stool burden.
- daily Miralax Senokot-S BID
#Hypercholesterolemia
- Continue Zetia
#COPD
- Continue inhalers
#Chronic stomach problem/cramping
#Possible GERD
- Patient did not tolerate PPI
-Pepcid started, cont
-maalox prn
#Legs cramping/pain
Bengay-like cream prn
#Former smoker
#Moderate protein calorie malnutrition
PT/OT appreciated SNF rehab
case mgmt consult appreciated
Code Status: Full Code
DVT Prophylaxis: SCDs. Aspirin 325 mg daily.
Discussed with patient and patient's son Lamont
I spent a total of 45 minutes with the patient or on the floor. More than 50% of this time involved counseling and coordination of care.
Anticipated Discharge: 24 - 48 hours
Subjective/Interval History
-
Date of Service: October 05, 2024
Episodic symptomatic hypotension. Patient also notes episodes shortness of breath though stable vital signs on room air.
Objective Data
-
Labs:
Laboratory Results
10/05/24
06:00
WBC Pending
Hgb Pending
Hct Pending
Plt Count Pending
Sodium Pending
Potassium Pending
Chloride Pending
Carbon Dioxide Pending
BUN Pending
Creatinine Pending
Glucose Pending
Calcium Pending
Vital Signs:
Vital Signs
Temp Pulse Resp BP Pulse Ox
97.5 F 65 16 127/73 99
10/05/24 03:05 10/05/24 03:05 10/05/24 03:05 10/05/24 03:05 10/05/24 03:05
I&O
10/03/24 10/04/24 10/05/24
06:59 06:59 06:59
Intake Total 800 / 800 240 / 240 600 / 600
Output Total 775 / 775 1270 / 1270 720 / 720
Balance -1030 / -1030 -120 / -120
[2024-10-05 07:21] LABS: Hematocrit 31.1 % (39.0-52.0); Hemoglobin 10.8 g/dL (13.0-18.0); Mean Corp Hgb Conc. 34.7 g/dL (33.0-37.0); Mean Corpuscular Hgb 32.3 pg (27.0-31.0); Mean Corpuscular Volume 93.1 fL (80.0-94.0); Mean Platelet Volume 8.5 fL (7.4-10.4); Platelet Count 254 10^3/uL (130-400); Red Blood Cell Count 3.34 10^6/uL (4.70-6.10); Red Cell Dist. Width 13.8 % (11.5-14.5); White Blood Cell Count 5.3 10^3/uL (4.8-10.8)
[2024-10-05] MEDS: SYMBICORT 80/4.5 MCG INHALER 2 PUFF INH ×2 (07:43→19:56)
[2024-10-05] MEDS: SPIRIVA RESPIMAT 2.5 MCG 2 PUFF INH (07:43)
[2024-10-05 07:52] LABS: Blood Urea Nitrogen 17 mg/dl (9-20); Calcium 8.7 mg/dl (8.4-10.2); Carbon Dioxide 28 mmol/L (22-30); Chloride 105 mmol/L (98-107); Estimated Creatinine Clearance 89 ml/min; Glucose 91 mg/dl (70-99); Magnesium 2.1 mg/dl (1.6-2.3); Phosphorus 3.6 mg/dl (2.5-4.5); Potassium 4.5 mmol/L (3.5-5.1); Sodium 135 mmol/L (135-145); eGFR > 60.00
[2024-10-05] MEDS: LIDOCAINE 4% PATCH 1 PATCH TOPICAL (09:15)
[2024-10-05] MEDS: MIRALAX 17 GRAMS PO (09:15)
[2024-10-05] MEDS: ASPIRIN 325 MG PO (09:15)
[2024-10-05] MEDS: LASIX PO (09:15)
[2024-10-05] MEDS: VITAMIN B-12 1000 MCG PO (09:16)
[2024-10-05] MEDS: PEPCID 20 MG PO ×2 (09:16→19:57)
[2024-10-05] MEDS: PROSCAR 5 MG PO (09:16)
[2024-10-05] MEDS: ProAmatine 2.5 MG PO (09:16)
[2024-10-05] MEDS: MUCINEX 600 MG PO ×2 (09:16→19:57)
[2024-10-05] MEDS: SENOKOT-S 1 TABLET PO ×2 (09:16→19:57)
[2024-10-05] MEDS: MAALOX 30 ML PO (10:40)
--- NOTE | 2024-10-05 10:43 | PTCARENOTE ---
pt c/o burning and reflux discomfort. maalox po given per AUG. care ongoing.
[2024-10-05] MEDS: ProAmatine PO (13:26)
--- NOTE | 2024-10-05 13:57 | CM ---
CM updated patient son regarding no bed at [facility] as of today with possible bed on Wednesday. Bed available at [facility] but patient not medically stable today per physician. CM updated Liaison about family wish for [facility] if at all possible and
physician about next available bed on wednesday. uncertain if [facility] will have bed tomorrow or not. CM will continue to follow for discharge planning needs.
Plan;SNF
[2024-10-05] MEDS: VENTOLIN NEBULES 2.5 MG INH (15:11)
[2024-10-05] MEDS: ZETIA 10 MG PO (17:57)
[2024-10-05] MEDS: FLOMAX 0.4 MG PO (17:57)
[2024-10-05] MEDS: ProAmatine 5 MG PO (18:03)
[2024-10-06] VITALS (7 sets, daily range): BP systolic 109–137; BP diastolic 54–72; PULSE 68–74; O2SAT 96–97; BMI 20.7
[2024-10-06] MEDS: COMTAN 200 MG PO ×7 (00:47→23:48)
[2024-10-06] MEDS: SINEMET 25-100 2 TABLET PO ×7 (00:47→23:47)
[2024-10-06] MEDS: SYNTHROID 150 MCG PO (05:08)
[2024-10-06] MEDS: VENTOLIN NEBULES 2.5 MG INH ×2 (06:08→13:21)
--- NOTE | 2024-10-06 07:30 | W.PN.HOSP.TC ---
Today's Communication/Plan
-
Discharge planning SNF rehab tomorrow
Assessment / Plan
Assessment / Plan
Physical Exam
General: Well Developed, Well Nourished and No Apparent Distress
HEENT: Normocephalic, Moist mucous membranes and Atraumatic
Respiratory: Clear to Auscultation Bilaterally
Cardiac: S1/S2 and Regular Rate and Rhythm
GI: Soft, Non Tender, Non Distended and Normal Bowel Sounds
Musculoskeletal: No Cyanosis and No Edema. LLE surgical site bandage C/D/I.
Skin: Warm. Dry.
Neuro: AOx3 conversant coherent
Assessment/Plan
78-year-old male with past medical history of CAD status post stents, possible CHF, Parkinson's disease, BPH, hypothyroidism, constipation, hypercholesterolemia and COPD, presented for left hip injury. He tripped and fell outside the grocery store
and landed on his left hip and left upper extremity. Denied head injury or loss of consciousness or any prodromal symptoms prior to fall. Not on blood thinners. He normally ambulates with a walker. He has falls occasionally. No recent chest pain or
shortness of breath. Denies any difficulties with anesthesia previously.
#Ambulatory dysfunction with fall and left hip displaced femoral neck fracture status post left hip hemiarthroplasty on 09/29/24
- Tylenol, Dilaudid as needed for pain
- Orthopedics consulted
- Continue WBAT B/L LEs on walker/assistance
- PT/OT, THPs x 6 weeks
- ASA 325mg daily x 4 weeks (Day 1 was September 28, 2024)
- ice to hip
- Dressing on x 2 weeks
- Outpatient Ortho follow-up 4 weeks (from 09/29/24)
- Pain control: Hold narcotic pain meds d/t hx confusion/delirium
New onset Afib RVR 10/02 since resolved
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
-Cardio eval appreciated
-afib spontaneously converted back to Sinus rhythm following once IV lopressor 5 mg and 250 cc IVF bolus, has consistently remain NSR since, Tele completed
-ECHO appreciated EF 55-60% no significant valve abn's
#Subjective SOB, difficulty clearing sputum
#Coughing
CXR appreciated no acute abn's
incentive spirometer
sputum cx contaminated
CR chest appreciated no significant acute abn's, atelectasis noted
COVID Flu neg
Mucinex, Acapella
symptoms possibly exacerbated by GERD, pepcid started and increased to BID, maalox prn, recommended to space out morning meds as possible.
#Intermittent Hypotension
possibly d/t low volume poor oral in take.
low dose midodrine started with holding parameters
midodrine increased to 5 mg TID
no significant orthostatic hypotension noted on orthostatic vitals
#Agitation/post-op Delirium
#Drug induced Encephalopathy
-avoid Ativan/benzodiazepines or narcotic pain medications unless patient absolutely needs them
-son also named Lamont available to help redirect patient as necessary.
-mental status since improved, baseline
#Questionable Hematuria - resolved
#Post-Op Fever - resolved
-single fever spike Temp 100.4 at the end of surgery 09/28/24, no further fever since
-Encourage incentive spirometry, pulmonary toilet, mobilization as tolerated
#Parkinson's disease
- Continue carbidopa/levodopa/entacapone
#CAD status post stents
- Continue aspirin
#Hx chronic HFpEF
- Patient appears euvolemic at this time
- Home Lasix resumed with holding parameters
#BPH
- Continue finasteride, tamsulosin
#Hypothyroidism
- Continue Levothyroxine
#Constipation
- Continue bowel regimen
- Abdominal X-ray from 09/30/24 with nonobstructive bowel gas pattern and moderate colonic stool burden.
- daily Miralax Senokot-S BID hold if diarrhea
#Hypercholesterolemia
- Continue Zetia
#COPD
- Continue inhalers
#Chronic stomach problem/cramping
#Possible GERD
- Patient did not tolerate PPI
-Pepcid started and titrated up to twice a day, cont
-maalox prn
#Former smoker
#Moderate protein calorie malnutrition
PT/OT appreciated SNF rehab
case mgmt consult appreciated
Code Status: Full Code
DVT Prophylaxis: SCDs. Aspirin 325 mg daily.
Discussed with patient and patient's son Lamont
I spent a total of 45 minutes with the patient or on the floor. More than 50% of this time involved counseling and coordination of care.
Anticipated Discharge: Within 24 hours
Subjective/Interval History
-
Date of Service: October 06, 2024
No acute distress, stable respiratory status on room air. Exertional dysphnea persists. GERD likely exacerbated by multiple medications in the morning
Objective Data
-
Labs:
Laboratory Results
10/06/24
07:00
WBC Pending
Hgb Pending
Hct Pending
Plt Count Pending
Sodium Pending
Potassium Pending
Chloride Pending
Carbon Dioxide Pending
BUN Pending
Creatinine Pending
Glucose Pending
Calcium Pending
Total Bilirubin Pending
AST Pending
ALT Pending
Alkaline Phosphatase Pending
Vital Signs:
Vital Signs
Temp Pulse Resp BP Pulse Ox
97.8 F 53 16 98/53 100
10/05/24 23:05 10/05/24 23:05 10/05/24 23:05 10/05/24 23:05 10/05/24 23:05
I&O
10/05/24 10/06/24 10/07/24
06:59 06:59 06:59
Intake Total 600 / 600 480 / 480
Output Total 720 / 720 1200 / 1200
Balance -120 / -120 -720 / -720
[2024-10-06] MEDS: SYMBICORT 80/4.5 MCG INHALER 2 PUFF INH ×2 (07:40→19:29)
[2024-10-06] MEDS: SPIRIVA RESPIMAT 2.5 MCG 2 PUFF INH (07:41)
[2024-10-06 07:54] LABS: Hematocrit 34.9 % (39.0-52.0); Hemoglobin 11.5 g/dL (13.0-18.0); Mean Corpuscular Volume 97.2 fL (80.0-94.0); Mean Platelet Volume 8.6 fL (7.4-10.4); Platelet Count 264 10^3/uL (130-400); Red Blood Cell Count 3.59 10^6/uL (4.70-6.10); Red Cell Dist. Width 13.8 % (11.5-14.5)
--- NOTE | 2024-10-06 08:01 | PN.CDI ---
CDI
- -
CDI:
Physician Documentation Request
Admit Date: 09/27/24 16:41
Dear Doctor Wenceslao,
Please review the following and provide your response in the progress notes.
Clinical Indicators:
Pt admitted with left hip displaced femoral neck fractures/p hemiarthroplasty 09/28
Progress notes 10/03 &, ' Intermittent Hypotension possibly d/t low volume poor oral in take. low dose midodrine started with holding parameters...'
Progress note 10/05, ' midodrine increased to 5 mg TID...'
Cardiology consult 10/02,' For his paroxysmal atrial fibrillation, unfortunately we will not be able to do much. We cannot add on rate control given that he is bradycardic when in sinus rhythm and he has chronic hypotension likely from autonomic
dysfunction in the setting of Parkinson's disease. '
Orthostatic BPS below
09/29/24
11:05 09/29/24
11:10 09/30/24
10:56
Supine- Blood Pressure 93/67 93/67
Sitting- Blood Pressure 118/62
10/01/24
09:52 10/01/24
10:09
Supine- Blood Pressure 87/44
Sitting- Blood Pressure 87/44
Please provide the suspected etiology of the documented hypotension:
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
Hypotension due to low volume with poor ora intake only
Other ( please specify)
Use of terms such as suspected, likely, concern for, or probable (associated with a specific diagnosis that is being evaluated, monitored, or treated as if it exists) are acceptable and can be coded in the inpatient setting, when documented at the
time of discharge.
Thank you,
Mary Alvarado RN
CDI Specialist
[place] [facility]
Please use your independent medical judgment in providing your response.
[2024-10-06 08:20] LABS: ALT (SGPT) < 10 U/L (0-50); AST (SGOT) 18 U/L (17-59); Albumin 3.4 g/dl (3.5-5.0); Alkaline Phosphatase 80 U/L (38-126); Blood Urea Nitrogen 15 mg/dl (9-20); Calcium 8.9 mg/dl (8.4-10.2); Carbon Dioxide 28 mmol/L (22-30); Chloride 104 mmol/L (98-107); Direct Bilirubin 0.4 mg/dl (0.0-0.4); Estimated Creatinine Clearance 89 ml/min; Glucose 93 mg/dl (70-99); Magnesium 2.3 mg/dl (1.6-2.3); Phosphorus 3.2 mg/dl (2.5-4.5); Potassium 4.7 mmol/L (3.5-5.1); Sodium 137 mmol/L (135-145); Total Bilirubin 0.7 mg/dl (0.2-1.3); Total Protein 6.1 g/dl (6.3-8.2); eGFR > 60.00
[2024-10-06] MEDS: ASPIRIN 325 MG PO (08:44)
[2024-10-06] MEDS: SENOKOT-S 1 TABLET PO ×2 (08:44→19:37)
[2024-10-06] MEDS: PROSCAR 5 MG PO (08:44)
[2024-10-06] MEDS: ProAmatine 5 MG PO (08:44)
[2024-10-06] MEDS: VITAMIN B-12 1000 MCG PO (08:45)
[2024-10-06] MEDS: MUCINEX 600 MG PO ×2 (08:45→19:37)
[2024-10-06] MEDS: PEPCID 20 MG PO ×2 (08:45→19:37)
[2024-10-06] MEDS: LASIX 20 MG PO (08:45)
[2024-10-06] MEDS: LIDOCAINE 4% PATCH 1 PATCH TOPICAL (08:46)
[2024-10-06] MEDS: MIRALAX 17 GRAMS PO (08:46)
[2024-10-06] MEDS: MAALOX 30 ML PO (10:17)
[2024-10-06 12:25] LABS: Cortisol, Random 15.5 ug/dl
[2024-10-06] MEDS: ProAmatine PO ×2 (14:10→17:31)
--- NOTE | 2024-10-06 14:41 | CM ---
Patient seen at bedside with son. Patient son confirmed he would like patient to go to [facility]. Per Liaison patient has bed available at requested facility and would be able to go tomorrow if medically appropriate. CM sent tt to physician to
request update. Patient son given IMM and completed form placed on chart. Patient report to [phone]/fax [phone]. CM completed transfer forms and placed on chart. Liaison requested patient arrive after 3pm. CM will continue to follow for
discharge planning needs.
Plan; [facility] tomorrow
[2024-10-06] MEDS: FLOMAX 0.4 MG PO (17:29)
[2024-10-06] MEDS: ZETIA 10 MG PO (17:29)
[2024-10-07] MEDS: COMTAN 200 MG PO ×4 (04:13→16:21)
[2024-10-07] MEDS: SINEMET 25-100 2 TABLET PO ×4 (04:13→16:21)
[2024-10-07] MEDS: VENTOLIN NEBULES 2.5 MG INH (04:38)
[2024-10-07 06:00] VITALS: BMI 18.6
[2024-10-07] MEDS: SYNTHROID 150 MCG PO (06:29)
--- NOTE | 2024-10-07 06:30 | W.PN.HOSP.TC ---
Addendum entered and electronically signed by Johnnie Billy MD 10/07/24 13:06:
Sputum Culture though contaminated positive for Klebsiella Pneumonia
Cefdinir 600 mg daily at noon started for seven days
Original Note:
Today's Communication/Plan
-
Discharge
Assessment / Plan
Assessment / Plan
Physical Exam
General: Well Developed, Well Nourished and No Apparent Distress
HEENT: Normocephalic, Moist mucous membranes and Atraumatic
Respiratory: Clear to Auscultation Bilaterally
Cardiac: S1/S2 and Regular Rate and Rhythm
GI: Soft, Non Tender, Non Distended and Normal Bowel Sounds
Musculoskeletal: No Cyanosis and No Edema. LLE surgical site bandage C/D/I.
Skin: Warm. Dry.
Neuro: AOx3 conversant coherent
Assessment/Plan
78-year-old male with past medical history of CAD status post stents, possible CHF, Parkinson's disease, BPH, hypothyroidism, constipation, hypercholesterolemia and COPD, presented for left hip injury. He tripped and fell outside the grocery store
and landed on his left hip and left upper extremity. Denied head injury or loss of consciousness or any prodromal symptoms prior to fall. Not on blood thinners. He normally ambulates with a walker. He has falls occasionally. No recent chest pain or
shortness of breath. Denies any difficulties with anesthesia previously.
#Ambulatory dysfunction with fall and left hip displaced femoral neck fracture status post left hip hemiarthroplasty on 09/29/24
- Tylenol, Dilaudid as needed for pain
- Orthopedics consulted
- Continue WBAT B/L LEs on walker/assistance
- PT/OT, THPs x 6 weeks
- ASA 325mg daily x 4 weeks (Day 1 was September 28, 2024)
- ice to hip
- Dressing on x 2 weeks
- Outpatient Ortho follow-up 4 weeks (from 09/29/24)
- Pain control: Hold narcotic pain meds d/t hx confusion/delirium
New onset Afib RVR 10/02 since resolved
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
-Cardio eval appreciated
-afib spontaneously converted back to Sinus rhythm following once IV lopressor 5 mg and 250 cc IVF bolus, has consistently remain NSR since, Tele completed
-ECHO appreciated EF 55-60% no significant valve abn's
#Subjective SOB, difficulty clearing sputum
#Coughing
#Chronic stomach problem/cramping
#Possible GERD
CXR appreciated no acute abn's
incentive spirometer
sputum cx contaminated
CR chest appreciated no significant acute abn's, atelectasis noted
COVID Flu neg
Mucinex, Acapella
symptoms possibly exacerbated by GERD, PPI intolerant, pepcid started and increased to BID, maalox prn, recommended to space out morning meds as possible. Outpatient follow up with GI recommended
#Intermittent Hypotension
possibly d/t low volume poor oral in take.
low dose midodrine started with holding parameters
midodrine increased to 5 mg TID
no significant orthostatic hypotension noted on orthostatic vitals
Blood pressure since improved
#Agitation/post-op Delirium
#Drug induced Encephalopathy
-avoid Ativan/benzodiazepines or narcotic pain medications unless patient absolutely needs them
-son also named Lamont available to help redirect patient as necessary.
-mental status since improved, baseline
#Questionable Hematuria - resolved
#Post-Op Fever - resolved
-single fever spike Temp 100.4 at the end of surgery 09/28/24, no further fever since
-Encourage incentive spirometry, pulmonary toilet, mobilization as tolerated
#Parkinson's disease
- Continue carbidopa/levodopa/entacapone
#CAD status post stents
- Continue aspirin
#Hx chronic HFpEF
- Patient appears euvolemic at this time
- Home Lasix resumed with holding parameters
#BPH
- Continue finasteride, tamsulosin
#Hypothyroidism
- Continue Levothyroxine
#Constipation
- Continue bowel regimen
- Abdominal X-ray from 09/30/24 with nonobstructive bowel gas pattern and moderate colonic stool burden.
- daily Miralax Senokot-S BID hold if diarrhea
#Hypercholesterolemia
- Continue Zetia
#COPD
- Continue inhalers
#Former smoker
#Moderate protein calorie malnutrition
PT/OT appreciated SNF rehab
case mgmt consult appreciated
Code Status: Full Code
DVT Prophylaxis: SCDs. Aspirin 325 mg daily.
Medically stable for discharge SNF rehab with outpatient follow up recommendations.
Discussed with patient and patient's son Lamont
Total Time Preparing Discharge __40 minutes including examination of the patient, summary of the hospital stay, instructions for continuing care to all relevant caregivers; and preparation of discharge records, prescriptions, and referral
forms if necessary.
Anticipated Discharge: Today
Subjective/Interval History
-
Date of Service: October 07, 2024
Seen and examined at bedside in no acute distress sitting up comfortably in bed. Continues to report exertional dyspnea also reporting stomach discomfort following morning meds and meal, likely GERD prn maalox to be provided. Patient otherwise
looking forward to Rehab. Denies new acute issues.
Objective Data
-
Vital Signs:
Vital Signs
Temp Pulse Resp BP Pulse Ox
98.5 F 65 18 114/57 99
10/06/24 23:13 10/07/24 04:43 10/07/24 04:43 10/06/24 23:13 10/07/24 04:43
I&O
10/05/24 10/06/24 10/07/24
06:59 06:59 06:59
Intake Total 600 / 600 480 / 480 960 / 960
Output Total 720 / 720 1200 / 1200 725 / 725
Balance -120 / -120 -720 / -720 235 / 235
[2024-10-07 06:36] VITALS: BP 127/79; BP 133/75; BP 95/74; PULSE 70; PULSE 78
[2024-10-07 07:19] VITALS: BP 112/60
[2024-10-07] MEDS: SPIRIVA RESPIMAT 2.5 MCG 2 PUFF INH (08:01)
[2024-10-07] MEDS: SYMBICORT 80/4.5 MCG INHALER 2 PUFF INH ×2 (08:01→18:17)
[2024-10-07] MEDS: PROSCAR 5 MG PO (08:56)
[2024-10-07] MEDS: ProAmatine 5 MG PO ×3 (08:56→17:07)
[2024-10-07] MEDS: LASIX 20 MG PO (08:57)
[2024-10-07] MEDS: MUCINEX 600 MG PO (08:57)
[2024-10-07] MEDS: VITAMIN B-12 1000 MCG PO (08:57)
[2024-10-07] MEDS: ASPIRIN 325 MG PO (08:57)
[2024-10-07] MEDS: LIDOCAINE 4% PATCH 1 PATCH TOPICAL (08:58)
[2024-10-07] MEDS: PEPCID 20 MG PO (08:58)
[2024-10-07] MEDS: SENOKOT-S 1 TABLET PO (08:58)
[2024-10-07] MEDS: MIRALAX 17 GRAMS PO (08:58)
--- NOTE | 2024-10-07 09:23 | CM ---
Reviewed the chart notes. CM continues to be available to patient/family and is monitoring medical plan for needs at discharge.
Plan: Discharge to [facility] when medically stable. No precert required.
Call report to: [phone]
Fax report to: [phone]
[2024-10-07] MEDS: MAALOX 30 ML PO ×2 (09:32→13:46)
--- NOTE | 2024-10-07 12:54 | W.DCSUMMARY ---
Discharge Summary
Discharge Data
Date of Admission: 09/27/24
Date of Discharge: 10/07/24
-
Pending Results: No
Discharge Plan
-
Patient Disposition: Halfway/SNF
Discharge Diagnosis/Procedures: Ambulatory dysfunction with fall and left hip displaced femoral neck fracture status post left hip hemiarthroplasty on 09/29/24
Brief episode atrial fibrillation with rapid ventricular rate since resolved
GERD
Intermittent Hypotension
Agitation/post-op Delirium since resolved
Drug induced Encephalopathy since resolved
Parkinson's disease
Coronary artery disease status post stents
History Chronic Heart Failure Preserved Ejection Fractions
BPH
Hypothyroidism
Constipation
Hypercholesterolemia
COPD
possible Pneumonia sputum culture positive for Klebsiella pneumoniae
Former smoker
Moderate protein calorie malnutrition
Condition: Fair
Diet: Low Cholesterol and 2 Gram Sodium
Activity: With assistance, As tolerated and With Walker
Driving Restrictions: Not until seen by your Dr
Other Services: PT and OT
Activity Restrictions/Additional Instructions:
Follow up with your primary care provider in 1 week of discharge, orthopedic in 2-3 weeks of discharge, your rn research in 2-4 weeks of discharge, and GI in 2-4 weeks of discharge.
Maintain total hip precautions until otherwise instructed by Orthopedic. Left hip surgical wound dressings may be removed 10/12/24.
Pepcid and as needed Maalox prescribed for GERD/indigestion/stomach cramping/heart burn.
Aspirin 325 mg daily prescribed for DVT prophylaxis as per Orthopedic. Last dose 325 mg October 25, 2024. Then resume prior home Aspirin 81 mg daily next day for acute coronary syndrome risk reduction.
Midodrine prescribed for intermittent episodes hypotension. Hold if systolic blood pressure >120.
Senokot-S prescribed for constipation. Hold if diarrhea.
Tylenol prescribed as needed for pain. Avoid opiates.
Cefdinir prescribed for 6 more days for possible pneumonia, sputum culture positive for Klebsiella with good sensitivities (resistant only to ampicillin).
Please take medications as prescribed/recommended and follow up with primary care provider and/or other healthcare provider involved in your care for refills and/or further adjustment to your medication regimen as necessary.
Referrals:
Dani Jackson MD [Active] - in two to four weeks
Virgil Jiménez DO [Family Provider] - in one week
David Reynoso MD [Active] - in two to three weeks
Prescriptions:
New
aspirin 325 mg Tablet
325 mg PO DAILY Qty: 18 0RF
Rx Instructions:
Last dose October 25, 2024
Then resume Aspirin 81 mg daily next day
lidocaine 4 % Adhesive Patch,Medicated
1 patch topical DAILY Qty: 10 0RF
Rx Instructions:
Left Hip Pain
alum-mag hydroxide-simeth [Mag-Al Plus] 200-200-20 mg/5 mL Suspension
30 ml PO QIDPRN PRN (Reason: indigestion/stomach cramping/GERD/heartburn) Qty: 3000 0RF
midodrine 5 mg Tablet
5 mg PO TID@0800,1300,1800 Qty: 90 0RF
Rx Instructions:
Hold if SBP>120
famotidine 20 mg Tablet
20 mg PO BID Qty: 60 0RF
sennosides-docusate sodium 8.6-50 mg Tablet
1 tab PO BID Qty: 60 0RF
Rx Instructions:
Hold if Diarrhea
acetaminophen 325 mg Tablet
650 mg PO Q4HPRN PRN (Reason: pain/GUERRERO/temp> 100.4F) Qty: 90 0RF
cefdinir 300 mg Capsule
600 mg PO NOON 6 Days Qty: 12 0RF
Continued
lfkhhishq-omrtspio-tbcgprulcu 50-200-200 mg tablet
1 tab PO Q4H
Rx Instructions:
0700,1000,1300,1600,1900,2200
ipratropium-albuterol 0.5 mg-3 mg(2.5 mg base)/3 mL Solution For Nebulization
3 ml INHALATION R Q6HPRN PRN (Reason: sob)
polyethylene glycol 3350 [Miralax] 17 gram Powder In Packet
17 g PO Q48H
tamsulosin [Flomax] 0.4 mg Capsule
0.4 mg PO QPM
levothyroxine [Synthroid] 150 mcg Tablet
150 mcg PO MOTUWETHFRSA
furosemide [Lasix] 20 mg Tablet
20 mg PO DAILY
finasteride 5 mg Tablet
5 mg PO DAILY
ezetimibe [Zetia] 10 mg Tablet
10 mg PO QPM
Trelegy Ellipta 100-62.5-25 mcg Blister With Device
1 inh INHALATION R DAILY
cyanocobalamin (vitamin B-12) 1,000 mcg Tablet
1,000 mcg PO DAILY
Held
aspirin 81 mg Tablet,Delayed Release (Dr/Ec)
81 mg PO DAILY
Hold Instructions: resume after completing Aspirin 325 mg daily for DVT prophylaxis as per Orthopedic
Discharge Orders:
Discharge Patient (As Directed); Ordered 10/07/24
Ordered By: Johnnie Billy
Discharge Date and Time
Print Language: UKRAINIAN
[2024-10-07] MEDS: OMNICEF 600 MG PO (13:54)
[2024-10-07 15:46] VITALS: BP 126/62
[2024-10-07] MEDS: ZETIA 10 MG PO (17:02)
[2024-10-07] MEDS: FLOMAX 0.4 MG PO (17:02)
--- NOTE | 2024-10-07 18:56 | PTCARENOTE ---
Acute Care orange picker time changed from 18:00 to 19:00, family aware; discharge completed, report called to [facility] AMY Curtis; detailed report given to [facility] AMY Waters/Angie as still awaiting orange picker.
--- NOTE | 2024-10-07 19:25 | TRANSFER ---
19:10 pt d/c directions reviewed with sons and EMT, vs WNL for pt, IV pulled , pt D/C to [facility].
== END 2024-10-07 19:15 | DRG 521 ==
LOC: 2 SOUTH 16:41
PROVIDERS: Hospitalist; Nurse Practitioner Gerontology; Physician Assistant; Student in an Organized Health Care Education/Training Program; ADMITTING PHYSICIAN Hospitalist; ATTENDING PHYSICIAN Internal Medicine; CONSULT PHYSICIAN Orthopaedic Surgery; CONSULT PHYSICIAN Student in an Organized Health Care Education/Training Program; EMERGENCY PHYSICIAN Emergency Medicine; FAMILY PHYSICIAN Family Medicine Sports Medicine
PROC: 0SRS0J9 Replacement of Left Hip Joint, Femoral Surface with Synthetic Substitute, Cemented, Open Approach (ICD-10-PCS; 2024-09-28)
DX: S72.092A Other fracture of head and neck of left femur, initial encounter for closed fracture (principal); G92.8 Other toxic encephalopathy; J15.0 Pneumonia due to Klebsiella pneumoniae; I97.191 Other postprocedural cardiac functional disturbances following other surgery; F05 Delirium due to known physiological condition; E44.0 Moderate protein-calorie malnutrition; I50.32 Chronic diastolic (congestive) heart failure; Z68.1 Body mass index [BMI] 19.9 or less, adult; W01.0XXA Fall on same level from slipping, tripping and stumbling without subsequent striking against object, initial encounter; I25.10 Atherosclerotic heart disease of native coronary artery without angina pectoris; N40.0 Benign prostatic hyperplasia without lower urinary tract symptoms; E03.9 Hypothyroidism, unspecified; E78.00 Pure hypercholesterolemia, unspecified; J44.9 Chronic obstructive pulmonary disease, unspecified; G20.A1 Parkinson's disease without dyskinesia, without mention of fluctuations; K59.00 Constipation, unspecified; F41.0 Panic disorder [episodic paroxysmal anxiety]; I48.0 Paroxysmal atrial fibrillation; Y83.1 Surgical operation with implant of artificial internal device as the cause of abnormal reaction of the patient, or of later complication, without mention of misadventure at the time of the procedure; R29.6 Repeated falls; T50.905A Adverse effect of unspecified drugs, medicaments and biological substances, initial encounter; K21.9 Gastro-esophageal reflux disease without esophagitis; I95.89 Other hypotension; Z11.52 Encounter for screening for COVID-19; Y92.512 Supermarket, store or market as the place of occurrence of the external cause; Z79.82 Long term (current) use of aspirin; Z79.899 Other long term (current) drug therapy; Z87.891 Personal history of nicotine dependence; Z95.5 Presence of coronary angioplasty implant and graft
CPT/HCPCS: 93308; 71045; 73502; 74018; 80048; 80053; 82248; 82533; 82607; 82728; 83540; 83550; 83735; 83880; 84100; 84443; 84484; 85025; 85027; 85610; 85730; 86850; 86900; 86901; 87070; 87077; 87186; 87205; 87502; 87811; 93005; 93321; 93325; 94640; 96374; 97110; 97116; 97163; 97167; 97530; 97535; 99284; C1713; C1776

== ENCOUNTER 2024-10-19 00:14 | Observation (INO) | payer MEDICARE, OTHER, SELFPAY ==
[2024-10-18 20:56] VITALS: BP 93/57; BMI 22.3
[2024-10-18 21:22] LABS: % Basophils 0.8 % (0-2); % Eosinophils 5.6 % (0-6); % Immature Granulocytes 0.5 % (0-0.5); % Lymphocytes 11.7 % (20.5-51.1); % Monocytes 9.8 % (1.7-9.3); % Neutrophils 71.6 % (42.2-75.2); Absolute Basophils 0.1 10^3/uL (0-0.2); Absolute Eosinophils 0.4 10^3/uL (0-0.7); Absolute Lymphocytes 0.8 10^3/uL (1.2-3.4); Absolute Monocytes 0.7 10^3/uL (0.1-0.6); Absolute Neutrophils 4.7 10^3/uL (1.4-6.5); Hematocrit 30.6 % (39.0-52.0); Hemoglobin 10.5 g/dL (13.0-18.0); Mean Corp Hgb Conc. 34.3 g/dL (33.0-37.0); Mean Corpuscular Hgb 32.7 pg (27.0-31.0); Mean Corpuscular Volume 95.3 fL (80.0-94.0); Mean Platelet Volume 8.4 fL (7.4-10.4); Nucleated Red Blood Cells % 0 % (-); Platelet Count 312 10^3/uL (130-400); Red Blood Cell Count 3.21 10^6/uL (4.70-6.10); Red Cell Dist. Width 13.6 % (11.5-14.5); White Blood Cell Count 6.6 10^3/uL (4.8-10.8)
[2024-10-18 21:34] LABS: ALT (SGPT) < 10 U/L (0-50); AST (SGOT) 15 U/L (17-59); Albumin 3.3 g/dl (3.5-5.0); Alkaline Phosphatase 76 U/L (38-126); Blood Urea Nitrogen 17 mg/dl (9-20); Calcium 8.4 mg/dl (8.4-10.2); Carbon Dioxide 28 mmol/L (22-30); Chloride 102 mmol/L (98-107); Estimated Creatinine Clearance 78 ml/min; Glucose 89 mg/dl (70-99); Potassium 3.9 mmol/L (3.5-5.1); Sodium 134 mmol/L (135-145); Total Bilirubin 0.5 mg/dl (0.2-1.3); Total Protein 5.9 g/dl (6.3-8.2); eGFR > 60.00
[2024-10-18 22:00] VITALS: BP 96/66
[2024-10-18 22:19] LABS: Urine Albumin 3+ (Neg - Trace); Urine Bilirubin Negative (Negative); Urine Character Cloudy (Clear); Urine Color Yellow; Urine Glucose Negative (Negative); Urine Ketone 1+ (Negative); Urine Leukocyte 3+ (Negative); Urine Nitrite Positive (Negative); Urine Occult Blood 4+ (Negative); Urine Urobilinogen 1+ (Neg - 1+)
[2024-10-18 22:25] LABS: Urine Squamous Cell 0-2 /LPF (Few)
[2024-10-18 22:26] LABS: Urine Red Blood Cell >100 /HPF (0-2)
[2024-10-18 22:28] LABS: Urine Calcium Oxalate Crystals Present
[2024-10-18 22:29] LABS: Urine Bacteria Few (Negative)
--- NOTE | 2024-10-18 22:47 | ED.GENMED ---
History of Present Illness
General
Chief Complaint: Change in Mental Status
Source: family (Patients son)
Exam Limitations: none
Time Seen by Provider: 10/18/24 21:00
Nursing documentation reviewed up to this point in time: agreed with
History of Present Illness
History of Present Illness:
Patient to ED from rehab facility for increasing confusion. Son noticed this today and confusion continues to worsen, concerned that he has a UTI.. No fever/chills.
Past History
Past History
ED Past Medical History: COPD, GERD, Hypercholesterolemia, Hypothyroidism and Other (Parkinsons disease)
ED Past Surgical History: Orthopedic
Review of Systems
Review of Systems
Allergies reviewed?: Yes
All Other Systems: ROS reviewed and negative except as documented in HPI and ROS
Constitutional: Reports no symptoms
EENT: Reports no symptoms
Respiratory: Reports no symptoms
Cardiac: Reports no symptoms
ABD/GI: Reports no symptoms
: Reports no symptoms
Musculoskeletal: Reports no symptoms
Skin: Reports no symptoms
Neurological: Reports other (confusion)
Psychiatric: Reports no symptoms
Phy Exam
General Physical Exam
General Presentation: mild distress
General age: appears stated age
General Skin: warm and dry
General Habitus: normal
General Mental: confused
Cardiovascular Exam
Cardiovascular Exam: regular rate/rhythm and no edema
Pulmonary Exam
Pulmonary Exam: no respiratory distress and chest non tender
Gastrointestinal Exam
Gastrointestinal Exam: normal bowel sounds, non tender and soft
Neurological Exam
Neurological Exam: CN II-XII intact, no motor deficits, no sensory deficits and speech normal
Musculoskeletal Exam
Musculoskeletal Exam: full ROM and neuro vasc intact
Skin Exam
Skin Exam: normal color, warm/dry and no rash
Psychiatric Exam
Psychiatric Exam: other (confusion)
Course
Orders/Labs/Results
Orders:
Orders
10/18/24 21:10
Complete Blood Count/With Diff Urgent
Comprehensive Metabolic Panel Urgent
10/18/24 21:15
CT Head W/o Iv Contrast Urgent
Comment:
Reason For Exam: confusion
10/18/24 22:13
Urinalysis Reflex To Culture Urgent
Date Specimen was Collected: 10/18/24
Time Specimen was Collected: 22:10
Urine Microscopic Reflex Cult Urgent
Urine Culture Urgent
SOPHIA Source: U
Specimen Description:
Date Specimen was Collected: 10/18/24
Time Specimen was Collected: 22:10
10/18/24 22:45
0.9% Sodium Chloride 1000 ml [Nss] 1,000 ml IV BOLUS
10/18/24 22:46
Cefepime HCl [Maxipime] 2,000 mg IV NOW STA
10/18/24 23:00
Flush (0.9% Sodium Chloride) [Flush (Nss)] See Dose Instructions IV PER PROTOCOL
Abnormal Lab Results
10/18/24 10/18/24
21:10 22:13
RBC 3.21 L 10^6/uL
(4.70-6.10)
Hgb 10.5 L g/dL
(13.0-18.0)
Hct 30.6 L %
(39.0-52.0)
MCV 95.3 H fL
(80.0-94.0)
MCH 32.7 H pg
(27.0-31.0)
Absolute Lymphs (auto) 0.8 L 10^3/uL
(1.2-3.4)
Absolute Monos (auto) 0.7 H 10^3/uL
(0.1-0.6)
Lymphocytes % 11.7 L %
(20.5-51.1)
Monocytes % 9.8 H %
(1.7-9.3)
Sodium 134 L mmol/L
(135-145)
AST 15 L U/L
(17-59)
Total Protein 5.9 L g/dl
(6.3-8.2)
Albumin 3.3 L g/dl
(3.5-5.0)
Urine Ketones 1+ A
(Negative)
Ur Occult Blood Reflex 4+ A
(Negative)
Urine Nitrite (Reflex) Positive A
(Negative)
Leukocyte Esterase Rfl 3+ A
(Negative)
Urine RBC >100 A /HPF
(0-2)
Urine WBC (Reflex) 11-15 A /HPF
(0-5)
Urine Bacteria (Reflex) Few A
(Negative)
Urine Albumin (Reflex) 3+ A
(Neg - Trace)
10/18/24 21:10
10/18/24 21:10
Vital Signs
Initial and Last Documented VS:
Initial Vital Signs
Temp Pulse Resp BP Pulse Ox
98.0 F 50 20 93/57 99
10/18/24 20:56 10/18/24 20:56 10/18/24 20:56 10/18/24 20:56 10/18/24 20:56
Last Documented Vital Signs
Temp Pulse Resp BP Pulse Ox
98.0 F 50 20 99/70 95
10/18/24 20:56 10/18/24 20:56 10/18/24 20:56 10/18/24 23:00 10/18/24 23:15
*Critical Care Note
Total Time (30-74mins, 75-104mins- exclusive of procedures): Not Applicable
Update Note
Update Note:
Patient to ED from rehab facility for increasing confusion. SYmptoms started this AM. CT neg for acute findings. Labs reviewed, stable. UA reflecting UTI. Hypotensive. Will admit to hospitalist service, antibiotic, IVF started in dept.
ED Attending Note
-
Portions of this chart may have been created with voice recognition software.� Occasional wrong word or��sound alike� substitutions may have occurred due to the inherent limitations of voice recognition software.
Discharge Plan
Departure
Patient Disposition: Admit
Date of Disposition: 10/18/24
Time of Disposition: 22:59
Presentation/result/management discussed w/ accepting MD/DO: Hospitalist
Patient with high blood pressure during this ER visit?: No
Condition: Fair
Covid-19: Not Applicable
Discharge Problem:
UTI (urinary tract infection), Hypotension, Acute confusion
Prescriptions:
No Action
ktovqcbta-uxfpvttk-qfckoqhant 50-200-200 mg tablet
1 tab PO Q4H
Rx Instructions:
0700,1000,1300,1600,1900,2200
ipratropium-albuterol 0.5 mg-3 mg(2.5 mg base)/3 mL Solution For Nebulization
3 ml INHALATION R Q6HPRN PRN (Reason: sob)
polyethylene glycol 3350 [Miralax] 17 gram Powder In Packet
17 g PO Q48H
aspirin 81 mg Tablet,Delayed Release (Dr/Ec)
81 mg PO DAILY
tamsulosin [Flomax] 0.4 mg Capsule
0.4 mg PO QPM
levothyroxine [Synthroid] 150 mcg Tablet
150 mcg PO MOTUWETHFRSA
furosemide [Lasix] 20 mg Tablet
20 mg PO DAILY
finasteride 5 mg Tablet
5 mg PO DAILY
ezetimibe [Zetia] 10 mg Tablet
10 mg PO QPM
Trelegy Ellipta 100-62.5-25 mcg Blister With Device
1 inh INHALATION R DAILY
aspirin 325 mg Tablet
325 mg PO DAILY Qty: 18 0RF
Rx Instructions:
Last dose October 25, 2024
Then resume Aspirin 81 mg daily next day
lidocaine 4 % Adhesive Patch,Medicated
1 patch topical DAILY Qty: 10 0RF
Rx Instructions:
Left Hip Pain
alum-mag hydroxide-simeth [Mag-Al Plus] 200-200-20 mg/5 mL Suspension
30 ml PO QIDPRN PRN (Reason: indigestion/stomach cramping/GERD/heartburn) Qty: 3000 0RF
midodrine 5 mg Tablet
5 mg PO TID@0800,1300,1800 Qty: 90 0RF
Rx Instructions:
Hold if SBP>120
famotidine 20 mg Tablet
20 mg PO BID Qty: 60 0RF
sennosides-docusate sodium 8.6-50 mg Tablet
1 tab PO BID Qty: 60 0RF
Rx Instructions:
Hold if Diarrhea
cyanocobalamin (vitamin B-12) 1,000 mcg Tablet
1,000 mcg PO DAILY
acetaminophen 325 mg Tablet
650 mg PO Q4HPRN PRN (Reason: pain/GUERRERO/temp> 100.4F) Qty: 90 0RF
Interventions
Interventions:
*Risk Screen - Suicide Last Done: 10/18/24 20:56
*General Assessment Last Done: 10/18/24 20:56
*Neglect/Abuse Screening Last Done: 10/18/24 20:56
*ED- Fall Risk Assessment Last Done: 10/18/24 21:03
*ED COVID-19 Vaccine History Last Done: 10/18/24 21:03
ED- Neurological Assessment Last Done: 10/18/24 21:07
ED Swallowing Screen Last Done: 10/18/24 23:26
Discharge Date and Time
Print Language: AMHARIC
[2024-10-18 23:00] VITALS: BP 99/70
[2024-10-18] MEDS: NSS 1000 IV (23:01)
[2024-10-18] MEDS: MAXIPIME 2000 MG IV (23:01)
--- NOTE | 2024-10-18 23:23 | HPS.HSE ---
Family Physician
-
Family Physician: Kris Ramos
Chief Complaint
-
Confusion
History of Present Illness
This is a 79-year-old with past medical history of CAD s/p PCI, COPD not on home O2,, BPH, hypothyroid, Parkinson's disease and hyperlipidemia, ambulatory dysfunction with fall and left hip displaced femoral neck fracture status post left hip
hemiarthroplasty on 09/29/24, narcotic induced delirium. who presents from group home facility with confusion.
According to notes, patient came in from rehab facility for increasing confusion. Patient had constipation recently treated with laxative. While was having constipation he had urinary retention and had to have a urinary catheter placed. Urinary
cath in place was about 2 days ago. Son reported that the patient was in his usual state of health yesterday however when he saw him this morning he was altered. He has a typical plan expression when he is altered and does not respond
appropriately which is typical for his state of altered mental status. He has a history of reactions to benzodiazepines and antianxiety medications. He also has a history of encephalopathy to opioids.
When I saw the patient in the emergency department he had no acute concerns or complaints. He denied any fevers or chills. He had a indwelling urinary catheter that will remain in place for now.
In the emergency department he was afebrile, blood pressure was noted 96/60 with a pulse rate of 50 and was satting 94% on room air.
CBC was unremarkable. Electrolytes were stable. BUN/creatinine were normal.
UA was markedly positive.
CT of the head was negative for any acute interval process.
Medical History
Past Medical History
Past Medical History: Reports Other ( CAD status post stents, possible CHF, Parkinson's disease, BPH, hypothyroidism, constipation, hypercholesterolemia, COPD)
Past Surgical History: Reports None
Social History
Tobacco: Former Smoker
Alcohol: None
Drug: None
Family History
Family History: Not pertinent
Allergies / Home Medications
Allergies reflects when Allergies were last updated in [employer].
Home Medications with original date entered in [employer]
Allergy/Medication List:
Allergies
Allergy/AdvReac Type Severity Reaction Status Date / Time
No Known Allergies Allergy Verified 09/27/24 15:15
Home Medications
aspirin 81 mg tablet,delayed release 81 mg PO DAILY 09/27/24
carbidopa 50 mg-levodopa 200 mg-entacapone 200 mg tablet 1 tab PO Q4H 09/27/24
ezetimibe 10 mg tablet (Zetia) 10 mg PO QPM 09/27/24
finasteride 5 mg tablet 5 mg PO DAILY 09/27/24
fluticasone fur. 100 mcg-umeclid 62.5 mcg-vilant 25 mcg inhalat.powder (Trelegy Ellipta) 1 inh inhalation R DAILY 09/27/24
furosemide 20 mg tablet (Lasix) 20 mg PO DAILY 09/27/24
ipratropium 0.5 mg-albuterol 3 mg (2.5 mg base)/3 mL nebulization soln 3 ml inhalation R Q6HPRN PRN sob 09/27/24
levothyroxine 150 mcg tablet (Synthroid) 150 mcg PO MOTUWETHFRSA 09/27/24
polyethylene glycol 3350 17 gram oral powder packet (Miralax) 17 g PO Q48H 09/27/24
tamsulosin 0.4 mg capsule (Flomax) 0.4 mg PO QPM 09/27/24
Review of Systems
-
History Source: Patient
Constitutional: Reports No Symptoms
EENT: Reports No Symptoms
Respiratory: Reports No Symptoms
Cardiac: Reports No Symptoms
Abdomen/GI: Reports No Symptoms
: Reports Licona
Musculoskeletal: Reports No Symptoms
Skin: Reports No Symptoms
Neurological: Reports No Symptoms
Endocrine: Reports No Symptoms
Hematologic/Lymphatic: Reports No Symptoms
Psych: Reports No Symptoms
Physical Exam
Vital Signs
Vital Signs
Temp Pulse Resp BP Pulse Ox
98.0 F 50 20 96/66 94
10/18/24 20:56 10/18/24 20:56 10/18/24 20:56 10/18/24 22:00 10/18/24 22:30
Physical Exam
General: Well Developed, No Apparent Distress and Comfortable
HEENT: NormoCephalic, Anicteric, Moist mucous membranes and Atraumatic
Respiratory: Clear
Cardiac: S1/S2 and Regular Rhythm
Breast: Deferred by me
GI: Soft, Non Tender, Non Distended and Normal Bowel Sounds
Rectal: Deferred by Provider
Genito-urinary: Licona
Musculoskeletal: No Clubbing, No Cyanosis and No Edema
Skin: Warm
Neuro: AO x 3 and Nonfocal/grossly intact
Hematologic/Lymphatic: No Lymphadenopathy
Psych: Calm
Laboratory Results
-
10/18/24 21:10
10/18/24 21:10
Laboratory Results
Total Bilirubin 0.5 mg/dl (0.2-1.3) 10/18/24 21:10
AST 15 U/L (17-59) L 10/18/24 21:10
ALT < 10 U/L (0-50) 10/18/24 21:10
Alkaline Phosphatase 76 U/L (38-126) 10/18/24 21:10
Data Reviewed
-
CT Scan: Report Reviewed by me
Lab Data: Labs Reviewed by me
Old Records: Reviewed
Impression/Plan
-
IMPRESSION:
79-year-old with recent hip fracture, parkinson disease, history of CAD status PCI, history of COPD not on home O2, hypothyroid presenting to the emergency department with 2 days of increasing confusion without fevers chills or known urinary
symptoms. There was concern for UTI patient had a mildly positive UA in the emergency department. Due to the confusion and risks of fall he is to be hospitalized for treatment of his urinary tract infection. He has known BPH but does not appear
to show any signs of acute retention at this time with normal BUN and creatinine. Appears to be at baseline MS at this time.
PLAN:
UTI w/ metabolic encephalopathy -suspect secondary to acute urinary retention in the setting of constipation and now is status post indwelling urinary catheter draining mostly clear urine with also some sediments. UA is positive.
- Admit to MedSurg observation
- urine cultures
- IV ceftriaxone for now and monitor (no prior cultures)
- reeval in am
- continue jjmgvwczz-yxhfmcxv-jlsyrhrqlt 50-200-200 q 4 hours
- midodrine
- avoid narcotics and benzos
Hip surgery - denies pain
- non-opioid analgesia
- continue laxatives
BPH
- continue finesteride and tamsulosin
CAD
- continue aspirin and ezetemibe
- lasix 20 daily
COPD - stable,
- home inhalers
- prn nebs
hypothyroid, stable, continue home levothyroxine
DVT PPX - lovenox sq
Code status - DNR
[2024-10-19] VITALS: BP 119/67
[2024-10-19] MEDS: SINEMET CR 25-100 (EXTENDED RELEASE) 2 TABLET PO (00:01)
[2024-10-19] MEDS: COMTAN 200 MG PO ×3 (00:01→22:37)
--- NOTE | 2024-10-19 01:00 | PTCARENOTE ---
Pt arrived on unit from ED via stretcher. Pt pulled over from stretcher to bed by staff. Pt confused, bed alarm in place. Licona catheter on admission. Son at bedside to assist with answering admission questions. Call light within reach. Plan of care
ongoing.
[2024-10-19 02:36] VITALS: BP 143/68
[2024-10-19] MEDS: SYNTHROID 150 MCG PO (05:19)
[2024-10-19 05:40] VITALS: BMI 22.3
[2024-10-19 07:26] VITALS: BP 152/80
[2024-10-19 08:06] LABS: Hematocrit 36.1 % (39.0-52.0); Hemoglobin 12.1 g/dL (13.0-18.0); Mean Corp Hgb Conc. 33.5 g/dL (33.0-37.0); Mean Corpuscular Hgb 31.8 pg (27.0-31.0); Mean Corpuscular Volume 94.8 fL (80.0-94.0); Mean Platelet Volume 8.3 fL (7.4-10.4); Platelet Count 331 10^3/uL (130-400); Red Blood Cell Count 3.81 10^6/uL (4.70-6.10); Red Cell Dist. Width 13.6 % (11.5-14.5); White Blood Cell Count 5.8 10^3/uL (4.8-10.8)
[2024-10-19] MEDS: SYMBICORT 80/4.5 MCG INHALER INH (08:11)
[2024-10-19] MEDS: SPIRIVA RESPIMAT 2.5 MCG INH (08:11)
--- NOTE | 2024-10-19 08:18 | W.PN.HOSP.TC ---
Today's Communication/Plan
-
cont Abx
TOV
PT/OT
Assessment / Plan
Assessment / Plan
78yo M with Parkinson, CAD s/p PCI, COPD with chronic cough, orthostatic hypotension, BPH, hypothyroidism, chronic constipation, recent L hip Fx and hemiarthroplasty 09/29/24 brought with AMS brought in from rehab with increasing confusion and having
'flat sight' as per son. As per notes - patient previously had significant in-hospital delirium with BZD and opioids, however no record of any given in rehab. 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
delayed. Patient admitted with Licona placed in rehab due to urinary retention. Concern for UTI on admission. Mentation back to baseline as of next day after admission, however patient does not know why he was brought to the hospital. He complains of
progressive weakness over past months that finally lead him to previous fall. Patient neurologist s in [facility].
A/P:
#Acute metabolic encephalopathy 2/2 UTI on Parkinson dementia
Patient missed his Parkinson meds before admission - most likely adherence to timing of medication caused most of the ymtoms
As per son - Licona placed due to urinary retention 5 ddays ago developed with constipation - start TOV, watch for constipation, but patient does not report any
Acute urinary retention
Ceftriaxone and follow Ucx
US renal
CT head unremarkable for acute findings
Chest XR showed residual changs of pneumonia that he was treated on last admission
#Generalized weakness
#Orthostatic hypotension
most likely deconditioning after fall exacerbated by infection
Cannot exclude progression of Parkinson - continuation of management with established neurologist recommended
AM cortisol as of 10/06/24 - 15.5
cont midodrine
Abd binder on ambulation as needed
#CAD stable
#COPD not in exacerbation
#Hypothyroidism
#HLD
check TSH
cont home meds
DVT ppx with ASA 325mg as recommended by ortho on previous admission for Fx
DNR/DNI
I have spent at least 57min reviewing chart, test results, communication with consultants and providing direct patient care
Anticipated Discharge: 24 - 48 hours
Subjective/Interval History
-
Date of Service: October 19, 2024
Objective Data
-
Labs:
Laboratory Results
10/18/24 10/19/24
21:10 07:01
WBC 6.6 5.8
Hgb 10.5 L 12.1 L
Hct 30.6 L 36.1 L
Plt Count 312 331
Sodium 134 L Pending
Potassium 3.9 Pending
Chloride 102 Pending
Carbon Dioxide 28 Pending
BUN 17 Pending
Creatinine 0.7 Pending
Glucose 89 Pending
Calcium 8.4 Pending
Total Bilirubin 0.5
AST 15 L
ALT < 10
Alkaline Phosphatase 76
Vital Signs:
Vital Signs
Temp Pulse Resp BP Pulse Ox
98.1 F 68 18 143/68 95
10/19/24 07:26 10/19/24 07:26 10/19/24 07:26 10/19/24 02:36 10/19/24 07:26
I&O
10/18/24 10/19/24 10/20/24
06:59 06:59 06:59
Output Total 350 / 350
Balance -350 / -350
Review of Systems
-
History Source: Patient
All other systems: Reviewed and negative
Physical Exam
-
General: No Apparent Distress
HEENT: Normocephalic
Respiratory: Clear to Auscultation
Cardiac: Regular Rhythm
GI: Soft, Nontender and Nondistended
Genito-urinary: No Costovertebral Tender
Musculoskeletal: No Clubbing, No Cyanosis and No Edema
Skin: Warm
Neuro: Awake, Alert, Oriented and AO x 3
Psych: Calm
[2024-10-19 08:43] LABS: Blood Urea Nitrogen 13 mg/dl (9-20); Calcium 8.6 mg/dl (8.4-10.2); Carbon Dioxide 29 mmol/L (22-30); Chloride 103 mmol/L (98-107); Estimated Creatinine Clearance 91 ml/min; Glucose 82 mg/dl (70-99); Potassium 4.3 mmol/L (3.5-5.1); Sodium 136 mmol/L (135-145); eGFR > 60.00
[2024-10-19] MEDS: LASIX 20 MG PO (09:57)
[2024-10-19] MEDS: ASPIRIN 325 MG PO (09:57)
[2024-10-19] MEDS: PEPCID 20 MG PO ×2 (09:59→20:10)
[2024-10-19] MEDS: MIRALAX 17 GRAMS PO (10:00)
[2024-10-19] MEDS: SENOKOT-S 1 TABLET PO ×2 (10:00→20:11)
[2024-10-19] MEDS: PROSCAR 5 MG PO (10:00)
[2024-10-19] MEDS: STERILE WATER FOR INJECTION 10 ML IV (10:00)
[2024-10-19] MEDS: ProAmatine PO ×3 (10:04→17:16)
[2024-10-19] MEDS: VITAMIN B-12 1000 MCG PO (10:04)
[2024-10-19] MEDS: ROCEPHIN 1000 MG IV (10:04)
[2024-10-19 10:52] LABS: TSH 5.95 uIU/ml (0.47-4.68)
--- NOTE | 2024-10-19 11:56 | PTCARENOTE ---
Licona draning tea color urine. Licona D/C at 1130 and patient due to void at 1730
[2024-10-19 12:28] VITALS: BMI 22.5
[2024-10-19 12:44] VITALS: BP 137/85
--- NOTE | 2024-10-19 15:00 | CM ---
Patient seen at bedside on . Patient resting, when aroused patient told CM to put papers on the table. CM called to patient son and he confirmed that patient was at [facility] as a Short term care and that they were very comfortable there.
Patient son stated plan is to return to SNF. CM called to liaison and the family has held the bed at the facility. Per Liaison they will confirm with PT at SNF prior level of functioning. CM left message to update patient son about OBS/BAILEY status
and will leave form in room for patient son to review. CM will continue to follow for discharge planning needs.
Plan; return to [facility]; [facility]; bed hold as of today- private
[2024-10-19 15:20] VITALS: BP 141/74
[2024-10-19 16:02] VITALS: BP 141/74
[2024-10-19] MEDS: FLOMAX 0.4 MG PO (17:15)
[2024-10-19] MEDS: ZETIA 10 MG PO (17:15)
[2024-10-19] MEDS: SINEMET 25-100 2 TABLET PO ×2 (20:10→22:37)
[2024-10-19] MEDS: SYMBICORT 80/4.5 MCG INHALER 2 PUFF INH (20:34)
[2024-10-20 00:26] VITALS: BP 91/54
[2024-10-20 01:13] VITALS: BP 102/66
[2024-10-20] MEDS: COMTAN 200 MG PO ×5 (05:27→17:04)
[2024-10-20] MEDS: SINEMET 25-100 2 TABLET PO ×5 (05:27→17:05)
[2024-10-20] MEDS: SYNTHROID 150 MCG PO (05:30)
[2024-10-20 06:00] VITALS: BMI 22.5
[2024-10-20 07:33] VITALS: BP 107/57
[2024-10-20] MEDS: SPIRIVA RESPIMAT 2.5 MCG 2 PUFF INH (07:57)
[2024-10-20] MEDS: SYMBICORT 80/4.5 MCG INHALER 2 PUFF INH (07:58)
[2024-10-20] MEDS: PROSCAR 5 MG PO (08:56)
[2024-10-20] MEDS: ProAmatine 5 MG PO ×3 (08:56→17:06)
[2024-10-20] MEDS: ROCEPHIN 1000 MG IV (08:56)
[2024-10-20] MEDS: PEPCID 20 MG PO (08:56)
[2024-10-20] MEDS: STERILE WATER FOR INJECTION 10 ML IV (08:56)
[2024-10-20] MEDS: ASPIRIN 325 MG PO (08:56)
[2024-10-20] MEDS: VITAMIN B-12 1000 MCG PO (08:56)
[2024-10-20] MEDS: SENOKOT-S PO ×2 (08:57→11:41)
[2024-10-20] MEDS: LASIX 20 MG PO (08:57)
[2024-10-20 09:47] VITALS: BP 85/48; BP 97/65; PULSE 65; O2SAT 95
--- NOTE | 2024-10-20 10:10 | W.PN.HOSP.TC ---
Today's Communication/Plan
-
PT/OT
cont rocephin pedning UCx and then DC
Assessment / Plan
Assessment / Plan
78yo M with Parkinson, CAD s/p PCI, COPD with chronic cough, orthostatic hypotension, BPH, hypothyroidism, chronic constipation, recent L hip Fx and hemiarthroplasty 09/29/24 brought with AMS brought in from rehab with increasing confusion and having
'flat sight' as per son. As per notes - patient previously had significant in-hospital delirium with BZD and opioids, however no record of any given in rehab. 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
delayed. Patient admitted with Licona placed in rehab due to urinary retention. Concern for UTI on admission. Mentation back to baseline as of next day after admission, however patient does not know why he was brought to the hospital. He complains of
progressive weakness over past months that finally lead him to previous fall. Patient neurologist s in [facility].
A/P:
#Acute metabolic encephalopathy 2/2 UTI on Parkinson dementia
Patient missed his Parkinson meds before admission - most likely adherence to timing of medication caused most of the symtoms
Acute urinary retention - passed TOV, cont tamsulosin
Ceftriaxone and follow Ucx
US renal with tiny non-obstructive stoneCT head unremarkable for acute findings
Chest XR showed residual changes of pneumonia that he was treated on last admission
#Generalized weakness
#Orthostatic hypotension
most likely deconditioning after fall exacerbated by infection
Cannot exclude progression of Parkinson - continuation of management with established neurologist recommended
AM cortisol as of 10/06/24 - 15.5
cont midodrine
Abd binder on ambulation as needed
#CAD stable
#COPD not in exacerbation
#Hypothyroidism
#HLD
check TSH
cont home meds
DVT ppx with ASA 325mg as recommended by ortho on previous admission for Fx
DNR/DNI
I have spent at least 37min reviewing chart, test results, communication with consultants and providing direct patient care
Anticipated Discharge: Within 24 hours
Subjective/Interval History
-
Date of Service: October 20, 2024
Objective Data
-
Vital Signs:
Vital Signs
Temp Pulse Resp BP Pulse Ox
98.0 F 55 16 105/57 95
10/20/24 07:33 10/20/24 08:57 10/20/24 07:58 10/20/24 08:57 10/20/24 07:58
I&O
10/19/24 10/20/24 10/21/24
06:59 06:59 06:59
Intake Total 160 / 160
Output Total 350 / 350 3230 / 3230
Balance -350 / -350 -3070 / -3070
Review of Systems
-
History Source: Patient
All other systems: Reviewed and negative
Physical Exam
-
General: No Apparent Distress
HEENT: Normocephalic
Respiratory: Clear to Auscultation
GI: Soft, Nontender and Nondistended
Musculoskeletal: No Clubbing, No Cyanosis and No Edema
Neuro: Awake, Alert, Oriented and AO x 3
Psych: Calm
[2024-10-20 10:24] VITALS: BP 85/48; BP 97/65; PULSE 62
--- NOTE | 2024-10-20 13:48 | W.DCSUMMARY ---
Discharge Summary
Discharge Data
Date of Admission: 10/19/24
Date of Discharge: 10/20/24
-
Pending Results: No
Hospital Course
78yo M with Parkinson, CAD s/p PCI, COPD with chronic cough, orthostatic hypotension, BPH, hypothyroidism, chronic constipation, recent L hip Fx and hemiarthroplasty 09/29/24 brought with AMS brought in from rehab with increasing confusion and having
'flat sight' as per son. As per notes - patient previously had significant in-hospital delirium with BZD and opioids, however no record of any given in rehab. 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
delayed. Patient admitted with De Leon placed in rehab due to urinary retention. Concern for UTI on admission. Mentation back to baseline as of next day after admission, however patient does not know why he was brought to the hospital. He complains of
progressive weakness over past months that finally lead him to previous fall. Patient neurologist s in [facility].Patient missed his Parkinson meds before admission - most likely adherence to timing of medication caused most
of the symtoms. Ucx grew coag neg staph - cefuroxime reasonable, but questioning contamination. Medically stable for d/c back to rehab as per PT/OT notes.
Synthroid increased to dayly (previously 6 days per week) - TSH in 3 weeks recommended
De Leon removed - patient passed TOV
I have spent at least 37min reviewing chart, test results, communication with consultants and providing direct patient care
Patient was managed for:
#Acute metabolic encephalopathy 2/2 UTI on Parkinson dementia
#Generalized weakness
#Orthostatic hypotension
#CAD stable
#COPD not in exacerbation
#Hypothyroidism
#HLD
Discharge Plan
-
Patient Disposition: Correction/SNF
Discharge Diagnosis/Procedures: UTI
Diet: Regular
Driving Restrictions: As prior to admission
Other Services: PT
Referrals:
Kris Ramos MD [Family Provider] - in two to three weeks (repeat thyroid function tests)
Prescriptions:
New
levothyroxine 150 mcg Tablet
150 mcg PO DAILY @ 0600 Qty: 30 0RF
cefuroxime axetil 500 mg tablet
500 mg PO Q12H Qty: 10 0RF
Continued
zqlncsnvn-xqmugsvu-cgtafgfijt 50-200-200 mg tablet
1 tab PO Q4H
Rx Instructions:
0700,1000,1300,1600,1900,2200
ipratropium-albuterol 0.5 mg-3 mg(2.5 mg base)/3 mL Solution For Nebulization
3 ml INHALATION R Q6HPRN PRN (Reason: sob)
polyethylene glycol 3350 [Miralax] 17 gram Powder In Packet
17 g PO Q48H
tamsulosin [Flomax] 0.4 mg Capsule
0.4 mg PO QPM
furosemide [Lasix] 20 mg Tablet
20 mg PO DAILY
finasteride 5 mg Tablet
5 mg PO DAILY
ezetimibe [Zetia] 10 mg Tablet
10 mg PO QPM
Trelegy Ellipta 100-62.5-25 mcg Blister With Device
1 inh INHALATION R DAILY
aspirin 325 mg Tablet
325 mg PO DAILY Qty: 18 0RF
Rx Instructions:
Last dose October 25, 2024
Then resume Aspirin 81 mg daily next day
lidocaine 4 % Adhesive Patch,Medicated
1 patch topical DAILY Qty: 10 0RF
Rx Instructions:
Left Hip Pain
alum-mag hydroxide-simeth [Mag-Al Plus] 200-200-20 mg/5 mL Suspension
30 ml PO QIDPRN PRN (Reason: indigestion/stomach cramping/GERD/heartburn) Qty: 3000 0RF
midodrine 5 mg Tablet
5 mg PO TID@0800,1300,1800 Qty: 90 0RF
Rx Instructions:
Hold if SBP>120
famotidine 20 mg Tablet
20 mg PO BID Qty: 60 0RF
sennosides-docusate sodium 8.6-50 mg Tablet
1 tab PO BID Qty: 60 0RF
Rx Instructions:
Hold if Diarrhea
cyanocobalamin (vitamin B-12) 1,000 mcg Tablet
1,000 mcg PO DAILY
acetaminophen 325 mg Tablet
650 mg PO Q4HPRN PRN (Reason: pain/GUERRERO/temp> 100.4F) Qty: 90 0RF
Held
aspirin 81 mg Tablet,Delayed Release (Dr/Ec)
81 mg PO DAILY
Hold Instructions: until completed 1 month of Aspirin 325mg
Discontinued
levothyroxine [Synthroid] 150 mcg Tablet
150 mcg PO MOTUWETHFRSA
Discharge Orders:
Discharge Patient (As Directed); Ordered 10/20/24
Ordered By: Murphy Thompson
Discharge Date and Time
Print Language: ALBANIAN
[2024-10-20] MEDS: DUONEB 3 ML INH (13:50)
--- NOTE | 2024-10-20 13:56 | CM ---
Addendum entered by Estelita King 10/20/24 14:13:
5:15pm transport set - updated Claudia trivedi at facility & [facility]
Original Note:
Spoke with Claudia trivedi at [facility]
patient discharged today, he is bed hold
OBS status - form explained to [facility]. In chart
PLAN: [facility]
Report #: [phone]
Fax #: [phone]
transportation forms on chart
[2024-10-20 15:22] VITALS: BP 131/67
[2024-10-20] MEDS: FLOMAX 0.4 MG PO (17:05)
[2024-10-20] MEDS: ZETIA 10 MG PO (17:05)
== END 2024-10-20 17:52 ==
LOC: 3 WEST ACU 00:14
PROVIDERS: Nurse Practitioner; ADMITTING PHYSICIAN Internal Medicine; ATTENDING PHYSICIAN Internal Medicine; EMERGENCY PHYSICIAN Emergency Medicine; FAMILY PHYSICIAN Internal Medicine
DX: N39.0 Urinary tract infection, site not specified (principal); I95.1 Orthostatic hypotension; G93.41 Metabolic encephalopathy; Z87.891 Personal history of nicotine dependence; R53.1 Weakness; J44.9 Chronic obstructive pulmonary disease, unspecified; E03.9 Hypothyroidism, unspecified; Z66 Do not resuscitate; G20.A1 Parkinson's disease without dyskinesia, without mention of fluctuations
CPT/HCPCS: 70450; 76770; 80048; 80053; 81003; 81015; 84443; 85025; 85027; 87086; 87147; 87186; 94640; 96361; 96374; 97116; 97163; 97167; 97535; 99284; G0378

== ENCOUNTER 2024-11-15 16:12 | Emergency (ER) | payer MEDICARE, OTHER, SELFPAY ==
[2024-11-15 16:35] VITALS: BP 102/55
--- NOTE | 2024-11-15 19:34 | ED.MUSCINJ ---
HPI-Injury
General
Chief Complaint: Musculo-Skeletal Complaint
Source: patient and family (Son at bedside)
Time Seen by Provider: 11/15/24 18:38
History of Present Illness-Injury
Initial Injury comments:
79-year-old male with history of COPD, GERD, Parkinson's, was discharged home from rehab where he went after his left hip replacement on 09/29/2024. He is here for pain in his left hip and left knee after a fall. He states he lost his balance and
fell this morning. When PT/OT/[facility] arrived and he complained of pain in his right hip and knee they suggested he come here. . He was able to get himself up after the fall and has been ambulating. He denies hitting his head or any other injury.
Past History
Past History
ED Past Medical History: COPD, GERD, Hypercholesterolemia, Hypothyroidism and Other (Parkinsons disease)
ED Past Surgical History: Orthopedic
Review of Systems
Review of Systems
Allergies reviewed?: Yes
All Other Systems: ROS reviewed and negative except as documented in HPI and ROS
Respiratory: Reports trouble breathing (Chronic SOB due to emphysema)
Cardiac: Denies chest pain or syncope
ABD/GI: Denies abdominal pain, nausea, vomiting or diarrhea
: Denies dysuria or difficulty voiding
Musculoskeletal: Reports other (Left hip and knee pain); Denies edema, neck pain or back pain
Skin: Reports no symptoms
Neurological: Reports other (Loses balance and falls occasionally. He has fallen 3-4 times since back from rehab 3 weeks ago.)
Phy Exam
Physical Exam
Physical Exam:
GENERAL: No acute distress. A&Ox3.
CONSTITUTIONAL: Afebrile.
EYES: clear, conjunctivae normal
ENMT: moist mucus membranes, Pharynx nl
RESPIRATORY: Regular respirations, nonlabored, lungs clear.
CARDIOVASCULAR: Regular rate and rhythm, no murmurs, no rubs.
GI: Soft, nontender, normal BS
MUSCULOSKELETAL: No spinal bony tenderness. Mild tenderness about the left knee, no significant swelling, mild abrasion, full range of motion. Mild tenderness about the left hip, straight leg raise without significant pain. Distal neurovascular
intact Moves with ease. Well perfused. No edema
SKIN: Warm, dry, pink
PSYCH: Normal mood and affect. Well kept, interactive and appropriate
NEUROLOGIC: Awake, alert and oriented. No focal neurological deficits
Injury Course
Orders/Labs/Results
Orders:
Orders
11/15/24 16:40
CR Hip - LT w/wo Pel 2-3 Vw* Urgent
Comment:
Reason For Exam: pain after fall
Include a pelvis x-ray?: Yes
Knee, Left 4 or More Views [CR Knee - Left 4 Or More View*] Urgent
Comment:
Reason For Exam: pain after fall
MDM/Problems Addressed
Differential Diagnosis Includes:
Fracture versus soft tissue injury left hip and knee
MDM/Problems Addressed:
79-year-old male with history of COPD, GERD, questionable Parkinson's, was discharged home from rehab where he went after his left hip replacement on 09/29/2024. He is here for pain in his left hip and left knee after a fall. He states he lost his
balance and fell this morning. When PT/OT/[facility] arrived and he complained of pain in his right hip and knee they suggested he come here. . He was able to get himself up after the fall and has been ambulating. He denies hitting his head or any
other injury.
X-ray of left hip and left knee read by this examiner, no acute bony abnormality. Hardware intact.
Patient has been out of bed, ambulated to the bathroom and urinated.
He is stable for discharge.
*Critical Care Note
Total Time (30-74mins, 75-104mins- exclusive of procedures): Not Applicable
ED Attending Note
-
Portions of this chart may have been created with voice recognition software.� Occasional wrong word or��sound alike� substitutions may have occurred due to the inherent limitations of voice recognition software.
Discharge Plan
Departure
Patient Disposition: Home (Routine Discharge)
Date of Disposition: 11/15/24
Time of Disposition: 19:32
Patient with high blood pressure during this ER visit?: No
Condition: Fair
Discharge Problem:
Fall from slip, trip, or stumble, Soft tissue injury of left hip, Soft tissue injury of left knee
Instructions: Contusion (DC), Fall Prevention for Older Adults
Prescriptions:
No Action
iiwrmhhuw-[id number] 50-200-200 mg tablet
1 tab PO Q4H
Rx Instructions:
0700,1000,1300,1600,1900,2200
ipratropium-albuterol 0.5 mg-3 mg(2.5 mg base)/3 mL Solution For Nebulization
3 ml INHALATION R Q6HPRN PRN (Reason: sob)
polyethylene glycol 3350 [Miralax] 17 gram Powder In Packet
17 g PO Q48H
aspirin 81 mg Tablet,Delayed Release (Dr/Ec)
81 mg PO DAILY
tamsulosin [Flomax] 0.4 mg Capsule
0.4 mg PO QPM
furosemide [Lasix] 20 mg Tablet
20 mg PO DAILY
finasteride 5 mg Tablet
5 mg PO DAILY
ezetimibe [Zetia] 10 mg Tablet
10 mg PO QPM
Trelegy Ellipta 100-62.5-25 mcg Blister With Device
1 inh INHALATION R DAILY
aspirin 325 mg Tablet
325 mg PO DAILY Qty: 18 0RF
Rx Instructions:
Last dose October 25, 2024
Then resume Aspirin 81 mg daily next day
lidocaine 4 % Adhesive Patch,Medicated
1 patch topical DAILY Qty: 10 0RF
Rx Instructions:
Left Hip Pain
alum-mag hydroxide-simeth [Mag-Al Plus] 200-200-20 mg/5 mL Suspension
30 ml PO QIDPRN PRN (Reason: indigestion/stomach cramping/GERD/heartburn) Qty: 3000 0RF
midodrine 5 mg Tablet
5 mg PO TID@0800,1300,1800 Qty: 90 0RF
Rx Instructions:
Hold if SBP>120
famotidine 20 mg Tablet
20 mg PO BID Qty: 60 0RF
sennosides-docusate sodium 8.6-50 mg Tablet
1 tab PO BID Qty: 60 0RF
Rx Instructions:
Hold if Diarrhea
cyanocobalamin (vitamin B-12) 1,000 mcg Tablet
1,000 mcg PO DAILY
acetaminophen 325 mg Tablet
650 mg PO Q4HPRN PRN (Reason: pain/GUERRERO/temp> 100.4F) Qty: 90 0RF
levothyroxine 150 mcg Tablet
150 mcg PO DAILY @ 0600 Qty: 30 0RF
cefuroxime axetil 500 mg tablet
500 mg PO Q12H Qty: 10 0RF
Referrals:
Virgil Jiménez DO [Family Provider, Family Practice]
Activity Restrictions/Additional Instructions:
As we discussed, your x-rays show nothing broken or out of place
Tylenol as needed for pain
You may apply a cold compress to the areas 15 minutes off and on today and tomorrow if needed for comfort, swelling
Interventions
Interventions:
*Risk Screen - Suicide Last Done: 11/15/24 16:35
*General Assessment Last Done: 11/15/24 16:35
*Nursing Disposition Last Done: 11/15/24 19:55
ED-Musculoskeletal Assessment Last Done: 11/15/24 19:07
Discharge Date and Time
Discharge Date/Time: 11/15/24 19:56
Print Language: AFGHAN
== END 2024-11-15 19:56 | disposition home or self-care (01) ==
LOC: EMR 16:12
PROVIDERS: EMERGENCY PHYSICIAN Student in an Organized Health Care Education/Training Program; FAMILY PHYSICIAN Family Medicine Sports Medicine
DX: S79.812A Other specified injuries of left hip, initial encounter (principal); S80.212A Abrasion, left knee, initial encounter; W18.39XA Other fall on same level, initial encounter; E03.9 Hypothyroidism, unspecified; E78.00 Pure hypercholesterolemia, unspecified; G20.A1 Parkinson's disease without dyskinesia, without mention of fluctuations; J44.9 Chronic obstructive pulmonary disease, unspecified; Z96.642 Presence of left artificial hip joint
CPT/HCPCS: 99283; 73502; 73564